=== PATIENT | female | born 1950 | race Caucasian/White ===

== ENCOUNTER 2024-12-09 14:50 | Emergency (ER) | payer MEDICARE, OTHER, SELFPAY ==
--- NOTE | ~2024-12-09 | CT_ITS ---
CT cervical spine wo con Ordering provider: Kalia Thorpe MD History: . trauma . Comparison: None. Technique: CT of the cervical spine was performed without contrast. Sagittal and coronal reformatted images were also obtained and reviewed. Automated exposure control and iterative reconstruction lui hnique were employed. The dose-length product was 148.90 mGy-cm. FINDINGS: VERTEBRAE: Minimal subluxation at the level of C4-C5 and C7-T1. Otherwise, No subluxation or acute fr acture. The occipital condyles are intact. DISC SPACES: Narrowing of the disc C4-C5, C5-C6 and C6-C7. Multilevel facet joint disease. Multilevel uncovertebral joint degenerative changes. Bilateral narrowing of the foramina at the level of C3-C4, C4-C5 and C6-C7. Narrowing of the right fo ramen at the level of C5-C6. PARASPINOUS SOFT TISSUES: Normal. Opacification the left upper lobe area which may indicate atelectasis versus pneumonia. IMPRESSION: No acute osseous abnormality cervical spine. Multilevel degenerative disc disease. Reviewed, dictated and finalized at location A.
--- NOTE | ~2024-12-09 | CT_ITS ---
CT brain wo con Ordering provider: Kalia Thorpe MD History: 74 years Female with . head injury . Comparison: None. Technique: CT of the head without contrast. Radiation reduction technique utilized.The dose-length product was 605.33 mGy-cm. FINDINGS: BRAIN PARENCHYMA AND CSF SPACES: Mild leukoaraiosis and diffuse cortical atrophy. Mild atheromatous d isease. No midline shift, mass effect or hemorrhage. The brain parenchyma and CSF spaces are otherwi se normal. VISUALIZED PARANASAL SINUSES: Right maxillary sinus disease. MASTOIDS: Well aerated. BONES: The bones appear intact. SOFT TISSUES: Visualized nasopharynx is normal. Superficial soft tissues are normal. IMPRESSION: No acute intracranial findings. Reviewed, dictated and finalized at location A.
[2024-12-09 14:55] VITALS: BP 141/84; PULSE 70; RESP 16; TEMP 37.1; O2SAT 100
--- OUTSIDE RECORDS SUMMARY | 2024-12-09 15:24 | XMS_ITS | Referral Summary ---
Author Organization [facility] Address [address] [place] [id number] Care Team Providers Care Project Consultant Name Role Phone Felipe Singh Primary Care Provider Allergies Active Allergy Reactions Criticality Noted Date Comments Cefuroxime Angioedema High 06/23/2022 Lisinopril Angioedema High 06/23/2022 Medications multivit-min/fe rrous fumarate (MULTI VITAMIN ORAL) Take by mouth daily Active atorvastatin (LIPITOR) 20 mg tablet Take 1 tablet (20 mg total) by mouth daily 90 tablet 3 08/18/2022 Active busPIRone (BUSPAR) 5 mg tablet Take 1 tablet (5 mg total) by mouth 2 (two) times a day Active thiamine (VITAMIN B-1) 100 mg tablet Take 1 tablet (100 mg total) by mouth daily 03/12/2023 Active donepeziL (ARICEPT) 10 mg tablet Take 1 tablet (10 mg total) by mouth nightly 30 tablet 11 03/16/2023 Active sertraline (ZOLOFT) 100 mg tablet Take 1 tablet (100 mg total) by mouth daily 05/10/2023 Active memantine (NAMENDA) 5 mg tabletIndicatio ns:Moderate to Severe Alzheimer's Type Dementia Take 2 tablets (10 mg total) by mouth 2 (two) times a day 120 tablet 06/09/2023 Active Active Problems Problem Noted Date Diagnosed Date Routine general medical exam ination at a health care facility 06/22/2022 Assessment & Plan (06/30/2022 2:50 PM DEFENSE TRAVEL ADMINISTRATOR): HEALTHCARE MAINTENANCE updated Mixed hyperlipidemia 03/11/2020 Situational mixed anxiety and depressive disorde r 03/11/2020 Esophageal diverticulum 10/14/2018 Achalasia of esophagus 10/14/2018 Chronic blood loss anemia 10/13/2018 Spondylolisthesis, grade 2 01/21/2016 Spinal stenosis of lumbar re gion with neurogenic claudication 01/21/2016 Osteopenia 05/25/2011 Raynaud's disease 05/25/2011 Hypertension Assessment & Plan (07/15/2022 3:26 PM DEFENSE TRAVEL ADMINISTRATOR): Images from the original note were not included. This is a stable chronic condition. Monitor blood pressure, call if out of parameters as we discussed. Low sodium and caffeine diet. baby asa as discussed if applicable. Diet, exercise and weight reduction. Labs as ordered. F/U routine Assessment & Plan (06/30/2022 2:50 PM DEFENSE TRAVEL ADMINISTRATOR): Images from the original note were not included. This is a stable chronic condition. Monitor blood pressure, call if out of parameters as we discussed. Low sodium and caffeine diet. baby asa as discussed if applicable. Diet, exercise and weight reduction. Labs as ordered. F/U routine Alzheimer's dementia Assessment & Plan (07/15/2022 3:36 PM DEFENSE TRAVEL ADMINISTRATOR): Mild, increasing aricept, will follow, she is seen Psychiatry and Neurology down the road Assessment & Plan (06/30/2022 2:52 PM DEFENSE TRAVEL ADMINISTRATOR): Does not appers to be doing well per family, will do aditional work up Mild episode of recurrent major depressive disor franck Assessment & Plan (07/15/2022 3:26 PM DEFENSE TRAVEL ADMINISTRATOR): Well controlled, CPM Assessment & Plan (06/30/2022 2:49 PM DEFENSE TRAVEL ADMINISTRATOR): Well controlled with no SI/HI, CPM, f/u routine Immunizations Immunization Administration Dates Next Due Influenza, Trivalent, High D ose, Split, Preservative Free, Intramuscular 06/28/2017,06/14/2015 Influenza, Trivalent, IM (MDV) 05/11/2014,2011 Moderna SARS-CoV-2 Monovalent Vaccination (12+ Y RS) 09/25/2020,08/23/2020 Pneumococcal Conjugate PCV 13 06/14/2015 Pneumococcal Polysaccharide PPV23 01/27/2017 Tdap 11/17/2012,10/24/2012 ZOSTER LIVE 09/02/2012 Social History Tobacco Use Types Packs/Day Years Used Date Smoking Tobacco: Former Cigarettes AUDIT-C Answer Date Recorded Q1: How often do you have a drink containing alc ohol? Monthly or less 09/10/2022 Q2: How many drinks containi ng alcohol do you have on a typical day when you are drinking? 1 or 2 09/10/2022 Q3: How often do you have si x or more drinks on one occasion? Never 09/10/2022 PHQ-2 Answer Date Recorded PHQ-2 Total Score (If total score is 3 or more points, staff should administer the PHQ-9) 6 06/23/2022 Personal Safety Answer Date Recorded Getting School Help Needed Not on file 08/08 Comments No Sex and Gender Information Value Date Recorded Sex Assigned at Not on file Legal Sex Female 9:06 AM DEFENSE TRAVEL ADMINISTRATOR Gender Identity Female 06/23/2022 6:41 PM DEFENSE TRAVEL ADMINISTRATOR Sexual Orientation Straight 06/23/2022 6: 41 PM DEFENSE TRAVEL ADMINISTRATOR Last Filed Vital Signs Vital Sign Reading Time Taken Comments Blood Pressure 129/74 06/09/2023 2:40 PM DEFENSE TRAVEL ADMINISTRATOR Pulse 79 06/09/2023 2:40 PM DEFENSE TRAVEL ADMINISTRATOR Temperature 36.4 C (97.5 F) 08/18/2022 10:55 AM DEFENSE TRAVEL ADMINISTRATOR Respiratory Rate 18 08/18/2022 10:55 AM DEFENSE TRAVEL ADMINISTRATOR Oxygen Saturation 99% 08/18/2022 10:55 AM DEFENSE TRAVEL ADMINISTRATOR Inhaled Oxygen Concentration - - Weight 61.7 kg (136 lb) 06/09/2023 2:40 PM DEFENSE TRAVEL ADMINISTRATOR Height 162.6 cm (5' 4 ) 06/09/2023 2:40 PM DEFENSE TRAVEL ADMINISTRATOR Body Mass Index 23.34 06/09/2023 2:40 PM DEFENSE TRAVEL ADMINISTRATOR Plan of Treatment Not on file Procedures Procedure Name Priority Date/Time Associated Diagnosis Comments SCREENING MAMMOGRAM BILATERAL W ADAMA Schedule Routine, Read Routine (OP Routine) 12/25/2022 4:06 PM CDT Encounter for screening mammogram for malignant neoplasm of breast DEXA AXIAL SKELETON BONE DENSITY 1 OR MORE SITES Schedule Routine, Read Routine (OP Routine) 12/25/2022 3:59 PM CDT Menopause HEPATITIS C ANTIBODY Routine 06/23/2022 2:33 PM DEFENSE TRAVEL ADMINISTRATOR Need for hepatitis C screening test from Last 3 Months or Most Recently Relevant to Health Maintenance Results * (ABNORMAL) Screening Mammogram Bilateral W [place] (12/25/2022 4:06 PM CDT) Anatomical Region Laterality Modality Breast Bilateral Mammography Impressions 12/25/2022 4:22 PM CDT BI-RADS ATLAS category (overall): 0 - Incomplete: Needs Additional Imaging Evaluation 1. Indeterminate left breast findings. Further evaluation with diagnostic left mammography and possible diagnostic left breast ultrasound is recommended. 2. No mammographic evidence of malignancy in the right breast. Routine screening mammography of the right breast is recommended in 1 year. The patient has been or will be contacted. Narrative 12/25/2022 4:22 PM CDT Screening Mammogram Bilateral W Adama: 12/25/22 The study was acquired using full field digital technology and interpreted from soft copy. 2D digital mammographic views, as well as 3D digital tomosynthesis were performed in the CC and MLO projections. CLINICAL: Encounter for screening mammogram for malignant neoplasm of breast. No relevant medical history has been documented for this patient. History of breast cancer in Sister, Mother's Sister. COMPARISON: New Baseline Screening Mammography. No prior mammography is available for comparison. BREAST TISSUE: The breasts are heterogeneously dense, which may obscure small masses. FINDINGS: Suboptimal examination secondary to difficulty with patient positioning related to the patient's physical condition. There are vascular calcifications and other benign calcifications in both breasts. There is a biopsy marking clip in the lateral right breast, middle depth. There is a left breast MLO view asymmetry superior to the nipple, posterior depth. There is a left breast CC view asymmetry central or slightly lateral to the nipple, posterior depth. There are no suspicious findings in the right breast on mammogram. [facility] IMG MAMMO PROCEDURES Final Resu lt * Dexa Axial Skeleton Bone Density 1 or 2 Site (12/25/2022 3:59 PM CDT) Anatomical Region Laterality Modality Body N/A Mammography 12/26/2022 11:1 2 PM CDT Narrative 12/26/2022 11:21 PM CDT EXAM DESCRIPTION: DEXA AXIAL SKELETON BONE DENSITY 1 OR MORE SITES REASON FOR STUDY: 72 y/o year old F with given history of screening. Postmenopausal Metal Cut Off Saw Tender/Model: Global Axcess A (S/N [id number]) CLINICAL INFORMATION: Current height: 61.5 inches Maximum height: 63 inches Weight: 145 pounds Risk factors: Postmenopausal, adult fracture COMPARISON: None available FINDINGS: Right forearm: 33% radius BMD is 0.605 g/cm2 T-score is -1.5 LEFT HIP: Total BMD is 0.783 g/cm2 T-score is -1.3 Femoral neck BMD is 0.674 g/cm2 T-score is -1.6 FRAX: 10 year risk for a major osteoporotic fracture is 17 %, 10 year risk for a hip fracture is 2.8 % IMPRESSION: Low Bone Mass. REFERENCE: Bone mineral density: Normal (T-score above or = -1.0) Low bone mass (T-score between -1.0 and -2.5) replaces the previously used term osteopenia Osteoporosis (T-score = or below -2.5) Medical evaluation for secondary causes of low bone mineral density may be appropriate. FRAX is a World Health Organization validated fracture risk assessment tool that calculates a person's 10 year probability of a major osteoporosis related fracture and hip fracture. According to the National Osteoporosis Foundation guidelines, postmenopausal women and men age 50 or older with low bone mass and a 10 year probability of a major osteoporosis related fracture = or greater than 20% or a 10 year probability of a hip fracture = or greater than 3% should be considered for treatment. For further information, including treatment recommendations, please refer to the 2019 ISCD Official Positions (http://www.iscd.org) and the NOF's Clinician's Guide to Prevention and Treatment of Osteoporosis (http://www.nof.org/professionals/clinical-guidelines) THIS IS AN ELECTRONICALLY VERIFIED FINAL REPORT 12/26/2022 11:21 PM - Electronically signed by Amrit Godinez M.D. MF: [email or web address] Report ID: [id number] Reading Location: [id number] Procedure Note Amrit Godinez MD - 12/26/2022 EXAM DESCRIPTION: DEXA AXIAL SKELETON BONE DENSITY 1 OR MORE SITES REASON FOR STUDY: 72 y/o year old F with given history of screening. Postmenopausal Metal Cut Off Saw Tender/Model: Global Axcess A (S/N [id number]) CLINICAL INFORMATION: Current height: 61.5 inches Maximum height: 63 inches Weight: 145 pounds Risk factors: Postmenopausal, adult fracture COMPARISON: None available FINDINGS: Right forearm: 33% radius BMD is 0.605 g/cm2 T-score is -1.5 LEFT HIP: Total BMD is 0.783 g/cm2 T-score is -1.3 Femoral neck BMD is 0.674 g/cm2 T-score is -1.6 FRAX: 10 year risk for a major osteoporotic fracture is 17 %, 10 year risk for ahip fracture is 2.8 % IMPRESSION: Low Bone Mass. REFERENCE: Bone mineral density: Normal (T-score above or = -1.0) Low bone mass (T-score between -1.0 and -2.5) replaces thepreviously used term osteopenia Osteoporosis (T-score = or below -2.5) Medical evaluation for secondary causes of low bone mineral density may be appropriate. FRAX is a World Health Organization validated fracture risk assessmenttool that calculates a person's 10 year probability of a major osteoporosisrelated fracture and hip fracture. According to the National OsteoporosisFoundation guidelines, postmenopausal women and men age 50 or older with low bonemass and a 10 year probability of a major osteoporosis related fracture = or greater than 20% or a 10 year probability of a hip fracture = or greaterthan 3% should be considered for treatment. For further information, including treatment recommendations, please referto the 2019 ISCD Official Positions (http://www.iscd.org) and the NOF's Clinician's Guide to Prevention and Treatment of Osteoporosis (http://www.nof.org/professionals/clinical-guidelines) THIS IS AN ELECTRONICALLY VERIFIED FINAL REPORT 12/26/2022 11:21 PM - Electronically signed by Amrit Godinez M.D. MF: [email or web address] Report ID: [id number] Reading Location: [place] [id number] Fel[facility] IMG DXA PROCEDURES Final Result * Hepatitis C antibody (06/23/2022 2:33 PM DEFENSE TRAVEL ADMINISTRATOR) Hep C Ab Nonreactive Nonreactive CARLOS ALBERTO CAMPBELL Comment: Interpretive Data Nonreactive: Antibodies to HCV not detected. Does NOT exclude the possibility of recent exposure to HCV. Equivocal: Equivocal for HCV antibodies. Supplemental molecular testing will be automatically performed to determine infection status in accordance with current CDC screening recommendations. Reactive: Positive for HCV antibodies. This may represent current or past HCV infection. Supplemental molecular testing will be automatically performed to determine current infection status in accordance with current CDC screening recommendations. Interpretive data was last revised on 2019. Blood 06/23/2022 2:33 PM DEFENSE TRAVEL ADMINISTRATOR 06/23/2022 5:01 PM DEFENSE TRAVEL ADMINISTRATOR [facility] MICROBIOLOGY - [facility]AL [facility] Final Result CARLOS ALBERTO [address] [facility] Department [place] [address] from Last 3 Months or Most Recently Relevant to Health Maintenance Insurance HUMANA MEDICARE HMO HUMANA MEDICARE HMO HUMANA MEDICARE HMO Care Teams Project Consultant Relationship Specialty Start Date End Date Felipe Singh PA PCP - General Family Medicine 06/23/22
--- OUTSIDE RECORDS SUMMARY | 2024-12-09 15:24 | XMS_ITS | Clinical Summary ---
Author Organization [facility] Address [address] [place] [id number] Care Team Providers Care Hospital Manager Name Role Phone Felipe Singh Primary Care Provider [phone] Allergies Active Allergy Reactions Criticality Noted Date [...] 06/22/2022 Assessment & Plan (06/30/2022 2:50 PM VEHICLE MECHANIC): HEALTHCARE MAINTENANCE updated Mixed hyperlipidemia 03/11/2020 Situational mixed anxiety and depressive disorde r 03/11/2020 Esophageal diverticulum 10/14/2018 Achalasia of esophagus 10/14/2018 Chronic blood loss anemia 10/13/2018 Spondylolisthesis, grade 2 01/21/2016 Spinal stenosis of lumbar re gion with neurogenic claudication 01/21/2016 Osteopenia 05/25/2011 Raynaud's disease 05/25/2011 Hypertension Assessment & Plan (07/15/2022 3:26 PM VEHICLE MECHANIC): Images from the original note were not included. This is a stable chronic condition. Monitor blood pressure, call if out of parameters as we discussed. Low sodium and caffeine diet. baby asa as discussed if applicable. Diet, exercise and weight reduction. Labs as ordered. F/U routine Assessment & Plan (06/30/2022 2:50 PM VEHICLE MECHANIC): Images from the original note were not included. This is a stable chronic condition. Monitor blood pressure, call if out of parameters as we discussed. Low sodium and caffeine diet. baby asa as discussed if applicable. Diet, exercise and weight reduction. Labs as ordered. F/U routine Alzheimer's dementia Assessment & Plan (07/15/2022 3:36 PM VEHICLE MECHANIC): Mild, increasing aricept, will follow, she is seen Psychiatry and Neurology down the road Assessment & Plan (06/30/2022 2:52 PM VEHICLE MECHANIC): Does not appers to be doing well per family, will do aditional work up Mild episode of recurrent major depressive disor franck Assessment & Plan (07/15/2022 3:26 PM VEHICLE MECHANIC): Well controlled, CPM Assessment & Plan (06/30/2022 2:49 PM VEHICLE MECHANIC): Well controlled with no SI/HI, CPM, f/u routine Immunizations Immunization Administration Dates Next Due Influenza, Trivalent, High D ose, Split, Preservative Free, Intramuscular 06/28/2017,06/14/2015 Influenza, Trivalent, IM (MDV) 05/11/2014,2011 Moderna SARS-CoV-2 Monovalent Vaccination (12+ Y RS) 09/25/2020,08/23/2020 Pneumococcal Conjugate PCV 13 06/14/2015 Pneumococcal Polysaccharide PPV23 01/27/2017 Tdap 11/17/2012,10/24/2012 ZOSTER LIVE 09/02/2012 Surgical History Surgery Date Site/Laterality Comments SECTION HYSTERECTOMY ARM SURGERY Left HERNIA REPAIR SPINE SURGERY Medical History Medical History Date Comments Hypertension Family History Medical History Relation Name Comments Prostate cancer Father Stroke Father Alzheimer's disease Mother Stroke Mother Breast cancer Mother's Sister Breast cancer Sister Relation Name Status Comments Father Mother Mother's Sister Sister Social History Tobacco Use Types Packs/Day Years [...] on file Legal Sex Female 9:06 AM VEHICLE MECHANIC Gender Identity Female 06/23/2022 6:41 PM VEHICLE MECHANIC Sexual Orientation Straight 06/23/2022 6: 41 PM VEHICLE MECHANIC Obstetrics History Para Term AB IAB SAB Ectopic Multiple Livin g Live Births 2 Date Outcome GA Total Labor Labor/2nd/3rd Weight Sex Type Anes PTL Rafaela A1 A5 Name Clin Last Filed Vital Signs Vital Sign Reading Time Taken Comments Blood Pressure 129/74 06/09/2023 2:40 PM VEHICLE MECHANIC Pulse 79 06/09/2023 2:40 PM VEHICLE MECHANIC Temperature 36.4 C (97.5 F) 08/18/2022 10:55 AM VEHICLE MECHANIC Respiratory Rate 18 08/18/2022 10:55 AM VEHICLE MECHANIC Oxygen Saturation 99% 08/18/2022 10:55 AM VEHICLE MECHANIC Inhaled Oxygen Concentration - - Weight 61.7 kg (136 lb) 06/09/2023 2:40 PM VEHICLE MECHANIC Height 162.6 cm (5' 4 ) 06/09/2023 2:40 PM VEHICLE MECHANIC Body Mass Index 23.34 06/09/2023 2:40 PM VEHICLE MECHANIC Plan of Treatment Health Maintenance Due Date Last Done Comments Colon Cancer Screening-Colonoscopy 1950 Hepatitis B Screening 12/03/1967 Zoster Vaccine (2 of 3) 10/28/2012 09/02/2012 DTaP/Tdap/Td Vaccine (3 - Td or Tdap) 11/17/2022 11/17/2012, 10/24/2012 Depression Screening 06/23/2023 06/23/2022, 06/23/20 22 Fall Risk Assessment 06/23/2023 06/23/2022 Well Visit 65+ 06/23/2023 06/23/2022 Breast Cancer Screening-Mammogram 12/26/2023 023 Covid-19 Vaccine (3 - 2023-2 5 season) 2024 09/25/2020, 08/23/2020 Influenza Vaccine (#1) 2024 7, 06/14/2015, 05/11/2014, Additional history exists Osteoporosis Screening-Bone Density Scan 12/25/2024 12/25/2022 Pneumococcal vaccine 65+ Completed 01/27/2017, 05/27 Hepatitis C Screening Completed 06/23/2022 Procedures Procedure Name Priority Date/Time Associated Diagnosis Comments SCREENING MAMMOGRAM BILATERAL W [place]AMA Schedule Routine, Read Routine (OP Routine) 12/25/2022 4:06 PM CDT Encounter for screening mammogram for malignant neoplasm of breast DEXA AXIAL SKELETON BONE DENSITY 1 OR MORE SITES Schedule Routine, Read Routine (OP Routine) 12/25/2022 3:59 PM CDT Menopause HEPATITIS C ANTIBODY Routine 06/23/2022 2:33 PM VEHICLE MECHANIC Need for hepatitis C screening test from [...] F with given history of screening. Postmenopausal Forensic Identification Specialist/Model: Hologic Horizon A (S/N [id number]) CLINICAL INFORMATION: Current height: 61.5 inches Maximum [...] Amrit Godinez M.D. MF: JIGNA Report ID: [id number] Reading Location: [id number] Procedure Note Amrit Godinez MD - 12/26/2022 EXAM DESCRIPTION: DEXA AXIAL SKELETON BONE DENSITY 1 OR MORE SITES REASON FOR STUDY: 72 y/o year old F with given history of screening. Postmenopausal Forensic Identification Specialist/Model: Hologic Horizon A (S/N [id number]) CLINICAL INFORMATION: Current height: 61.5 inches Maximum [...] Amrit Godinez M.D. MF: JIGNA Report ID: [id number] Reading Location: [id number] Fel[facility] IMG DXA PROCEDURES Final Result * Hepatitis C antibody (06/23/2022 2:33 PM VEHICLE MECHANIC) Hep C Ab Nonreactive Nonreactive CARLOS ALBERTO [...] revised on 2019. Blood 06/23/2022 2:33 PM VEHICLE MECHANIC 06/23/2022 5:01 PM VEHICLE MECHANIC [facility] MICROBIOLOGY - GENERAL SHARI VALENTIN Final Result Performing Organization Address City/State/[facility] Co de Phone Number CARLOS ALBERTO [address] [facility] Department [place] [address] from Last 3 Months or Most Recently Relevant to Health Maintenance Insurance HUMANA MEDICARE HMO HUMANA MEDICARE HMO HUMANA MEDICARE HMO Care Teams Hospital Manager Relationship Specialty Start Date End Date Felipe Singh PA PCP - General Family Medicine 06/23/22
--- NOTE | 2024-12-09 15:35 | ED.FALL ---
HPI - Fall General Chief Complaint: Fall Stated Complaint: FALL Time Seen by Provider: 12/09/24 14:54 History of Present Illness HPI Narrative: Patient is a 74-year-old female with history of dementia who presents ER after a fall. Patient's daughter is at bedside. There are cameras in the patient's room and they witnessed a patient age to help stand the patient who then fell forward striking her face on the ground. Unfortunately the skilled nursing reported that the patient only fell on her bottom and they think she just bit her lip when apparently there is video evidence to the contrary. Patient cannot provide any history. Related Data Allergies Allergy/AdvReac Type Severity Reaction Status Date / Time Cephalosporins Allergy Unknown Unknown Verified 12/09/24 15:09 lisinopril Allergy Unknown Unknown Verified 12/09/24 15:09 Review of Systems Review of Systems: ROS unobtainable: Yes unobtainable due to mental status PMFSH Past Medical History Medical History (Updated 12/09/24 @ 17:37 by Kalia Thorpe MD) Hyperlipidemia Anxiety Dementia Exam Narrative: GENERAL: Well-appearing, well-nourished, and in no acute distress. HEAD: Normocephalic, atraumatic. ENT: Mucous membranes moist. 1 cm laceration left upper lip that is through and through a swelling of the upper lip. CHEST: Clear to auscultation. No respiratory distress. HEART: Regular rate and rhythm. Normal peripheral pulses. ABDOMEN: Soft, nontender, nondistended. EXTREMITIES: Normal range of motion. No edema. NEURO: Awake alert, at neurologic baseline. PSYCH: Normal mood and affect. Course Course Emergency Course: No fractures on imaging. Wound repaired. Discharge. Vital Signs Vital signs: Vital Signs Temperature 98.7 F 12/09/24 14:55 Pulse Rate 70 12/09/24 14:55 Respiratory Rate 16 12/09/24 14:55 Blood Pressure 141/84 H 12/09/24 14:55 Pulse Oximetry 100 12/09/24 14:55 Oxygen Delivery Room Air 12/09/24 14:55 Temperature 98.7 F 12/09/24 14:55 Pulse Rate 70 12/09/24 14:55 Respiratory Rate 16 12/09/24 14:55 Blood Pressure 141/84 H 12/09/24 14:55 Pulse Oximetry 100 12/09/24 14:55 Oxygen Delivery Room Air 12/09/24 14:55 Procedures Laceration Laceration 1: Date: 12/09/24 Time: 17:15 Size (cm): 1 Description: linear Depth: simple, single layer Local Anesthetic: lidocaine 1% Amount of anesthesia used (mL): 2 Pre-repair: wound explored and irrigated extensively ====== Skin Level ====== Skin layer closed with: other (fast absorbing gut) Size (cm): 5-0 Number of sutures: 2 Technique: simple, interrupted ====== Subcutaneous Layer ====== ====== Muscle Layer ====== ====== Tendon Layer ====== MDM - Fall Imaging Data Radiologist's impression: ITS Impressions Head CT 12/09/24 16:30 IMPRESSION: No acute intracranial findings. Cervical Spine CT 12/09/24 17:06 IMPRESSION: No acute osseous abnormality cervical spine. Multilevel degenerative disc disease. Discharge Plan Discharge Clinical Impression: Laceration of lip Patient Disposition: Home Condition: Stable Instructions: Laceration (ED) Additional Instructions: Your sutures will absorb over the next 2 days. Return the ER if you have pus draining from near the lip, you cannot breathe, cannot swallow, have additional concerns. Patient Language: [place] Prescriptions: New amoxicillin-pot clavulanate 875-125 mg tablet 1 tablet PO Q12H Qty: 10 0RF amoxicillin-pot clavulanate 875-125 mg tablet 1 tablet PO Q12H Qty: 10 0RF Follow-up/Referrals: PHYSICIAN,LIFE SCIENCES INSTRUCTOR [Primary Care Provider] - 1 Week
[2024-12-09 18:15] VITALS: BP 142/76; PULSE 70; RESP 16; O2SAT 98
== END 2024-12-09 19:35 ==
PROVIDERS: Emergency Provider Emergency Medicine
DX: S01.511A Laceration without foreign body of lip, initial encounter (principal); F03.90 Unspecified dementia, unspecified severity, without behavioral disturbance, psychotic disturbance, mood disturbance, and anxiety; E78.5 Hyperlipidemia, unspecified; M50.31 Other cervical disc degeneration, high cervical region; W05.0XXA Fall from non-moving wheelchair, initial encounter
CPT/HCPCS: 12011; 70450; 72125; 99284

== ENCOUNTER 2025-01-02 16:58 | Emergency (ER) | payer MEDICARE, SELFPAY ==
[2025-01-02] VITALS (14 sets, daily range): BP systolic 134–185; BP diastolic 79–117; PULSE 64–83; RESP 12–18; TEMP 36.6; O2SAT 94–100
--- NOTE | ~2025-01-02 | CT_ITS ---
CT brain wo con Ordering provider: Tanvi Slade APRN History: 74 years Female with . head injury s/p fall . Comparison: None. Technique: CT of the head without contrast. Radiation reduction technique utilized.The dose-length product was 605.53 mGy-cm. FINDINGS: BRAIN PARENCHYMA AND CSF SPACES: Mild leukoaraiosis and diffuse cortical atrophy. Mild atheromatous d isease. No midline shift, mass effect or hemorrhage. The brain parenchyma and CSF spaces are otherwi se normal. VISUALIZED PARANASAL SINUSES: Right maxillary sinus disease. MASTOIDS: Well aerated. BONES: The bones appear intact. SOFT TISSUES: Visualized nasopharynx is normal. Superficial soft tissues are normal. IMPRESSION: No acute intracranial findings. Reviewed, dictated and finalized at location A.
--- NOTE | ~2025-01-02 | CT_ITS ---
CT facial & cervical spine wo Ordering provider: Tanvi Slade APRN History: . fall prior to arrival . Comparison: December 09, 2024 Technique: Thin slice axial CT of the facial bones was performed without contrast. Coronal and sagit chris reformatted images were also obtained. . Automated exposure control and iterative reconstruction technique were employed. The dose-length product was 162.97 mGy-cm. FINDINGS: PARANASAL SINUSES: Bilateral maxillary sinus disease. Otherwise, Well aerated. Mild left nasal septal deviation. A tooth is protruding in the left maxillary sinus. BONES: No facial fracture including no nasal bone fracture. ORBITS AND SUPERFICIAL SOFT TISSUES: The optic globes and orbits are normal. The superficial soft tis sues are normal. VISUALIZED MASTOIDS: Well aerated. LIMITED VISUALIZED BRAIN PARENCHYMA: Normal. IMPRESSION: No facial fracture. CT facial & cervical spine wo Ordering provider: Tanvi Slade APRN History: . fall prior to arrival . Comparison: None. Technique: CT of the cervical spine was performed without contrast. Sagittal and coronal reformatted images were also obtained and reviewed. Automated exposure control and iterative reconstruction lui hnique were employed. The dose-length product was 162.97 mGy-cm. FINDINGS: VERTEBRAE: Minimal anterolisthesis seen at the level of C4-C5 and C7-T1. No subluxation or acute frac ture. The occipital condyles are intact. The distance between the spinous process of C1 and C2 is sl ightly larger than normal. Ligamentous injury is possible. MRI evaluation advised. DISC SPACES: Narrowing of the disc C4-C5, C5-C6 and C6-C7. Multilevel facet joint disease. Multilevel uncovertebral joint osteoarthritic changes. Multilevel intervertebral foraminal narrowing. PARASPINOUS SOFT TISSUES: Normal. IMPRESSION: No definite acute osseous abnormality cervical spine. Slightly enlarged distance between the spinous process of C1 and C2 which may indicate ligamentous in jury. Clinical correlation and if clinically warranted MRI is advised. Multilevel degenerative disc disease. Reviewed, dictated and finalized at location A. IMPRESSION: No facial fracture. CT facial & cervical spine wo Ordering provider: Tanvi Slade APRN History: . fall prior to arrival . Comparison: None. Technique: CT of the cervical spine was performed without contrast. Sagittal a nd coronal reformatted images were also obtained and reviewed. Automated expos ure control and iterative reconstruction technique were employed. The dose-rebecca th product was 162.97 mGy-cm. FINDINGS: VERTEBRAE: Minimal anterolisthesis seen at the level of C4-C5 and C7-T1. No sub luxation or acute fracture. The occipital condyles are intact. The distance be tween the spinous process of C1 and C2 is slightly larger than normal. Ligament ous injury is possible. MRI evaluation advised. DISC SPACES: Narrowing of the disc C4-C5, C5-C6 and C6-C7. Multilevel facet ramsey nt disease. Multilevel uncovertebral joint osteoarthritic changes. Multilevel i ntervertebral foraminal narrowing. PARASPINOUS SOFT TISSUES: Normal. IMPRESSION: No definite acute osseous abnormality cervical spine. Slightly enlarged distance between the spinous process of C1 and C2 which may i ndicate ligamentous injury. Clinical correlation and if clinically warranted MR I is advised. Multilevel degenerative disc disease.
--- NOTE | 2025-01-02 17:33 | ED.FALL ---
HPI - Fall General Chief Complaint: Fall Stated Complaint: fall Time Seen by Provider: 01/02/25 16:59 History of Present Illness HPI Narrative: Patient is a 74-year-old female who presents to the ER after sustaining a fall at the [facility] lives. According to EMS she tried to stand up and transfer on her own but had an unwitnessed fall. She presents to the ER at her neurological baseline. Patient is able to answer yes or no questions, but is otherwise unable to communicate. According to her chart patient has a history of hyperlipidemia, dementia, and anxiety. Upon assessment patient denies pain to her chest, pain to her back, and is able to follow directions (moving lower extremities as directed). Related Data Allergies Allergy/AdvReac Type Severity Reaction Status Date / Time Cephalosporins Allergy Unknown Unknown Verified 12/09/24 15:09 lisinopril Allergy Unknown Unknown Verified 12/09/24 15:09 Review of Systems Review of Systems: All systems reviewed & are unremarkable except as noted in HPI and below PMFSH Past Medical History Medical History Hyperlipidemia Anxiety Dementia Exam Narrative: GENERAL: Well appearing, well-nourished, non-toxic, in no acute distress. HEAD: Normocephalic, L eyebrow hematoma-no visible bleeding NECK: Supple. No adenopathy, no masses. L neck (near collarbone) abrasion RESPIRATORY: Airway patent, respirations nonlabored. Clear to auscultation bilaterally, no rales, rhonchi, wheezing. CARDIOVASCULAR: Regular rate and rhythm without murmurs, rubs, or gallops. Peripheral pulses 2+ and equal bilaterally. ABDOMINAL: Soft, nontender, nondistended, no hepatosplenomegaly. Normoactive BS. MUSCULOSKELETAL: Moves all extremities. Strength/ROM intact without gross deformities. SKIN: Warm, dry, normal color. No rashes. NEURO: A&O X3. Speech clear. Cranial nerves II-XII intact. No ataxic movements. PSYCHIATRIC: Appropriate mood and affect. Normal interaction. Course Vital Signs Vital signs: Vital Signs Temperature 36.6 C 01/02/25 16:52 Pulse Rate 83 01/02/25 16:52 Respiratory Rate 18 01/02/25 16:52 Blood Pressure 185/104 H 01/02/25 16:52 Pulse Oximetry 97 01/02/25 16:52 Oxygen Delivery Room Air 01/02/25 16:52 Temperature 36.6 C 01/02/25 16:52 Pulse Rate 66 01/02/25 18:16 Respiratory Rate 14 01/02/25 18:16 Blood Pressure 137/87 01/02/25 18:16 Pulse Oximetry 100 01/02/25 18:16 Oxygen Delivery Room Air 01/02/25 16:52 MDM - Fall MDM Narrative Medical decision making narrative: Patient is a 74-year-old female who presents to the ER after sustaining a fall at the [facility] she lives. According to EMS she tried to stand up and transfer on her own but had an unwitnessed fall. She presents to the ER at her neurological baseline. Patient is able to answer yes or no questions, but is otherwise unable to communicate. According to her chart patient has a history of hyperlipidemia, dementia, and anxiety. Upon assessment patient denies pain to her chest, pain to her back, and is able to follow directions (moving lower extremities as directed. Labs Ordered: None necessary Imaging Ordered: CT brain, CT facial and cervical spine Medications Ordered: None necessary Results: Pt's CT brain scan indicates BRAIN PARENCHYMA AND CSF SPACES: Mild leukoaraiosis and diffuse cortical atrophy. Mild atheromatous disease. No midline shift, mass effect or hemorrhage. The brain parenchyma and CSF spaces are otherwise normal. VISUALIZED PARANASAL SINUSES: Right maxillary sinus disease. MASTOIDS: Well aerated. BONES: The bones appear intact. SOFT TISSUES: Visualized nasopharynx is normal. Superficial soft tissues are normal. Her CT facial/cervical scan indicates PARANASAL SINUSES: Bilateral maxillary sinus disease. Otherwise, Well aerated. Mild left nasal septal deviation. A tooth is protruding in the left maxillary sinus. BONES: No facial fracture including no nasal bone fracture. ORBITS AND SUPERFICIAL SOFT TISSUES: The optic globes and orbits are normal. The superficial soft tissues are normal. VISUALIZED MASTOIDS: Well aerated. LIMITED VISUALIZED BRAIN PARENCHYMA: Normal. IMPRESSION: No facial fracture. VERTEBRAE: Minimal anterolisthesis seen at the level of C4-C5 and C7-T1. No subluxation or acute fracture. The occipital condyles are intact. The distance between the spinous process of C1 and C2 is slightly larger than normal. Ligamentous injury is possible. MRI evaluation advised. DISC SPACES: Narrowing of the disc C4-C5, C5-C6 and C6-C7. Multilevel facet joint disease. Multilevel uncovertebral joint osteoarthritic changes. Multilevel intervertebral foraminal narrowing. PARASPINOUS SOFT TISSUES: Normal. IMPRESSION: No definite acute osseous abnormality cervical spine. Slightly enlarged distance between the spinous process of C1 and C2 which may indicate ligamentous injury. Clinical correlation and if clinically warranted MRI is advised. Multilevel degenerative disc disease. Diagnosis: Fall, concussion Patient Education/Shared MDM: Patient's CT scans indicate no acute abnormalities, although the radiologist did note a slightly enlarged space between C1 and C2. Pt continues to deny pain, nor react, with palpation to the cervical spine. Upon reexamination she is smiling and continues to answer yes/no questions. Patient should follow-up with her PCP as soon as possible. She will not be discharged home with any new prescriptions. Strict return precautions provided in discharge paperwork. Vital signs stable at time of discharge. All questions answered. Differential Diagnosis Differential diagnosis: Likely concussion with loss of consciousness, concussion without loss of consciousness and other (Subdural hemorrhage, cervical strain, vertebral fracture) Imaging Data Attestation: I personally reviewed and interpreted this imaging study as follows: Radiologist's impression: Impressions Head CT 01/02/25 18:26 IMPRESSION: No acute intracranial findings. Head/Cervical Spine/Facial Bones CT 01/02/25 19:07 IMPRESSION: No facial fracture. CT facial & cervical spine wo Ordering provider: Tanvi Slade APRN History: . fall prior to arrival . Comparison: None. Technique: CT of the cervical spine was performed without contrast. Sagittal and coronal reformatted images were also obtained and reviewed. Automated exposure control and iterative reconstruction technique were employed. The dose-length product was 162.97 mGy-cm. FINDINGS: VERTEBRAE: Minimal anterolisthesis seen at the level of C4-C5 and C7-T1. No subluxation or acute fracture. The occipital condyles are intact. The distance between the spinous process of C1 and C2 is slightly larger than normal. Ligamentous injury is possible. MRI evaluation advised. DISC SPACES: Narrowing of the disc C4-C5, C5-C6 and C6-C7. Multilevel facet joint disease. Multilevel uncovertebral joint osteoarthritic changes. Multilevel intervertebral foraminal narrowing. PARASPINOUS SOFT TISSUES: Normal. IMPRESSION: No definite acute osseous abnormality cervical spine. Slightly enlarged distance between the spinous process of C1 and C2 which may indicate ligamentous injury. Clinical correlation and if clinically warranted MRI is advised. Multilevel degenerative disc disease. Discharge Plan Discharge Clinical Impression: Fall, Concussion Patient Disposition: NH Care Home/Asst Living Condition: Stable Instructions: Antibiotic Form, Head Injury (ED) Additional Instructions: Please return to the ER with any worsening symptoms, including altered mental status, repeated vomiting, or signs of extreme pain. She should follow-up with primary care provider as soon as possible for further evaluation. Take all regularly scheduled medications as prescribed. Patient Language: Honduran Prescriptions: No Action amoxicillin-pot clavulanate 875-125 mg tablet 1 tablet PO Q12H Qty: 10 0RF amoxicillin-pot clavulanate 875-125 mg tablet 1 tablet PO Q12H Qty: 10 0RF Follow-up/Referrals: PHYSICIAN,[employer]IRCRA[employer] MECHANIC [Primary Care Provider] - Stand Alone Forms: Mcfp Discharge Time of Disposition: 20:12
--- OUTSIDE RECORDS SUMMARY | 2025-01-02 17:38 | XMS_ITS | Referral Summary ---
Author Organization [facility] at the Medical Office Building Address [address] [place] [id number] Care Team Providers Care Fretted String Instrument Repairer Name Role Phone Felipe Singh Primary Care Provider [phone] Allergies Active Allergy Reactions Criticality Noted Date [...] 06/22/2022 Assessment & Plan (06/30/2022 2:50 PM GYM TEACHER): HEALTHCARE MAINTENANCE updated Mixed hyperlipidemia 03/11/2020 Situational mixed anxiety and depressive disorde r 03/11/2020 Esophageal diverticulum 10/14/2018 Achalasia of esophagus 10/14/2018 Chronic blood loss anemia 10/13/2018 Spondylolisthesis, grade 2 01/21/2016 Spinal stenosis of lumbar re gion with neurogenic claudication 01/21/2016 Osteopenia 05/25/2011 Raynaud's disease 05/25/2011 Hypertension Assessment & Plan (07/15/2022 3:26 PM GYM TEACHER): Images from the original note were not included. This is a stable chronic condition. Monitor blood pressure, call if out of parameters as we discussed. Low sodium and caffeine diet. baby asa as discussed if applicable. Diet, exercise and weight reduction. Labs as ordered. F/U routine Assessment & Plan (06/30/2022 2:50 PM GYM TEACHER): Images from the original note were not included. This is a stable chronic condition. Monitor blood pressure, call if out of parameters as we discussed. Low sodium and caffeine diet. baby asa as discussed if applicable. Diet, exercise and weight reduction. Labs as ordered. F/U routine Alzheimer's dementia Assessment & Plan (07/15/2022 3:36 PM GYM TEACHER): Mild, increasing aricept, will follow, she is seen Psychiatry and Neurology down the road Assessment & Plan (06/30/2022 2:52 PM GYM TEACHER): Does not appers to be doing well per family, will do aditional work up Mild episode of recurrent major depressive disor franck Assessment & Plan (07/15/2022 3:26 PM GYM TEACHER): Well controlled, CPM Assessment & Plan (06/30/2022 2:49 PM GYM TEACHER): Well controlled with no SI/HI, CPM, f/u [...] on file Legal Sex Female 9:06 AM GYM TEACHER Gender Identity Female 06/23/2022 6:41 PM GYM TEACHER Sexual Orientation Straight 06/23/2022 6: 41 PM GYM TEACHER Last Filed Vital Signs Vital Sign Reading Time Taken Comments Blood Pressure 129/74 06/09/2023 2:40 PM GYM TEACHER Pulse 79 06/09/2023 2:40 PM GYM TEACHER Temperature 36.4 C (97.5 F) 08/18/2022 10:55 AM GYM TEACHER Respiratory Rate 18 08/18/2022 10:55 AM GYM TEACHER Oxygen Saturation 99% 08/18/2022 10:55 AM GYM TEACHER Inhaled Oxygen Concentration - - Weight 61.7 kg (136 lb) 06/09/2023 2:40 PM GYM TEACHER Height 162.6 cm (5' 4) 06/09/2023 2:40 PM GYM TEACHER Body Mass Index 23.34 06/09/2023 2:40 PM GYM TEACHER Plan of Treatment Not on file Procedures [...] HEPATITIS C ANTIBODY Routine 06/23/2022 2:33 PM GYM TEACHER Need for hepatitis C screening test from [...] F with given history of screening. 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 MF: JIGNA Report ID: [id number] Reading Location: [id number] Procedure Note Amrit Godinez MD - 12/26/2022 EXAM DESCRIPTION: DEXA AXIAL SKELETON BONE DENSITY 1 OR MORE SITES REASON FOR STUDY: 72 y/o year old F with given history of screening. Postmenopausal [employer]acer/Model: [employer] [facility] (S/N [id number]) CLINICAL INFORMATION: Current height: 61.5 inches Maximum [...] Amrit Godinez M.D. MF: JIGNA Report ID: [id number] Reading Location: [place] [id number] [facility] IMG DXA PROCEDURES Final Result * Hepatitis C antibody (06/23/2022 2:33 PM GYM TEACHER) Hep C Ab Nonreactive Nonreactive CARLOS ALBERTO [...] revised on 2019. Blood 06/23/2022 2:33 PM GYM TEACHER 06/23/2022 5:01 PM GYM TEACHER [facility] Final Result CARLOS ALBERTO [address] [facility] Department [place] [address] from Last 3 Months or Most Recently Relevant to Health Maintenance Insurance [employer] MEDICARE HMO HU[employer] MEDICARE HMO HU[employer] MEDICARE HMO Care Teams Fretted String Instrument Repairer Relationship Specialty Start Date End Date Fleipe Singh PA PCP - General Family Medicine 06/23/22
--- OUTSIDE RECORDS SUMMARY | 2025-01-02 17:38 | XMS_ITS | Data Portability ---
Author Organization [place] - [facility] - Raissa jeffries, [facility] Address [address] [place] [address] Assessment Encounter Date Assessment Date Assessment LastModified by Organization Details LastModified Time 04/22/2022 04/22/2022 I have reviewed the RPM candidate and the patient has agreed. The medication management approach I select for this patient is Start/Adjust/ Stop. [email or web address] Not available 04/22/2022 16:28:31 Plan of Treatment Reminders Order Date Submit Date Provider Last Modified By Organization Details Last Modified Time Details Appointments None recorded. Lab lipid panel, serum 2021 022 [facility], [address] [place], [place] [address], [address], 3 04:28:48 CBC 2021 022 [facility], [address] [place], [place] [address], [address], 3 04:28:48 CMP, serum or plasma 2021 022 [facility], [address] [place], [place] [address], [place], [address], 3 04:28:48 HbA1c (hemoglobin A1c), blood 2021 022 [facility], [address] [place], [place] [address], [address], 3 04:28:48 TSH, serum or plasma 2021 022 [facility], [address] [place] [address], [address], 3 04:28:49 T4, free, serum 2021 022 [facility] [place] [facility], [address] [place] [address], [address], 3 04:28:49 T3, total, serum 2021 022 [facility] [place] [facility], [address] [place] [address], [address], 3 04:28:49 vitamin D, 25-hydroxy, total, serum 2021 022 [facility], [address] [place] [address], [address], 3 04:28:49 vitamin B12, serum 2021 022 [facility], [address] [place] [address], [address], 3 04:28:50 Referral neuropsycho logist referral 2021 022 [facility] - Dr. Sarkis Perez MD, [address] [place], [address], 3 04:28:50 neurologist referral 2021 [facility] - Dr. Sarkis Perez MD, [address] [place], [address], 15:24:13 Procedures None recorded. Surgeries None recorded. Imaging None recorded. Medication Orders donepezil 5 mg tablet 2021 [facility], [address] [place], [address], 16:32:03 losartan 50 mg-hydrochl orothiazide 12.5 mg tablet 2021 [facility], [address], [place], [address], 15:12:16 Adult Low Dose Aspirin 81 mg tablet,vanessa yed release 2021 [facility], [address] [facility] [address], [place], [address], 15:12:16 Patient TargetsNo targets recorded. Patient Instructions Encounter Date Encounter Id Patient Instructions Last Modified By Organization Details Last Modified Time 04/22/2022 [id number] home monitoring* [email or web address] Not availabl e 05/05/2022 15:07:30 Reason for Referral Neurologist Referral for Dem entia with behavioral disturbance Referring Physician: Prakash Bacon [facility], Encounter Date: 03/11/2022 Neuropsychologist Referral f or Dementia Referring Physician: Prakash Bacon [facility], Encounter Date: 04/22/2022 Problems Name Problem SNOMED Code Status Onset Date Resolution Date Notes Provider Name and Address Organization Details Recorded Time Essential hypertension 50455278 Active 2021 DEWAYNE Juarez, [place] - [facility] 14:43:29 Hyperlipidemia 33374823 Active 2021 DEWAYNE Juarez null, [facility] 14:43:43 Major depressive disorder 745437152 Active 2021 DEWAYNE Juarez, [facility] 2 14:43:50 Problem Notes None recorded. Medical Equipment None Reported. Allergies Allergen ID Allergen Name Allergen Category Reaction Reaction Severity Criticality Documentation Date Start Date Code Code System Note Provider Name and Address Organization Details Recorded Time 000754 cefuroxim e Not available Not available Not available Not available 03/11/2022 2194 RxNorm DEWAYNE Juarez [facility] 2 14:42:11 706423 lisinopri l medicatio n Not available Not available Not available 03/11/2022 79958 RxNorm DEWAYNE Juarez [facility] 2 14:43:05 Medications Name Sig Start Date Stop Date Status Note LastModified by Organization Details LastModified Time donepezil 5 mg tablet Take 1 tablet every day by oral route. active Not Available Not Available No t Available atorvastatin 10 mg tablet 03/11 completed Not Available Not Available Not Available ciprofloxaci n 500 mg tablet TAKE 1 TABLET BY MOUTH TWICE DAILY 03/11 completed Not Available Not Available Not Available losartan 50 mg-hydrochlo rothiazide 12.5 mg tablet Take 1 tablet every day by oral route for 90 days. active Not Available Not Available No t Available fluoxetine 20 mg capsule Take 1 capsule every day by oral route for 60 days. 03/11 completed Not Available Not Available Not Available Adult Low Dose Aspirin 81 mg tablet,delay ed release Take 1 tablet every day by oral route. 2021 active Not Available Not Available Not Avai lable escitalopram 5 mg tablet 03/11 completed Not Available Not Available Not Available Vitals Date Recorded Body height Body mass index (BMI) Body weight Body temperature Heart rate Oxygen saturation Oxygen saturation in Arterial blood by Pulse oximetry Systolic blood pressure Diastolic blood pressure Provider Name and Address Organization Details Last Updated DateTime 2 160.02 cm 26.8 kg/m2 96872.2 5 g 97.2 [degF] 82 /min 97 % 97 % 122 mm[Hg] 80 mm[Hg] DEWAYNE Juarez [facility] 2 14:39:46 Date Recorded Body height Body mass index (BMI) Body weight Body temperature Heart rate Oxygen saturation Oxygen saturation in Arterial blood by Pulse oximetry Systolic blood pressure Diastolic blood pressure Provider Name and Address Organization Details Last Updated DateTime 160.02 cm 26.6 kg/m2 30661.5 6 g 97.8 [degF] 78 /min 99 % 99 % 140 mm[Hg] 80 mm[Hg] DEWAYNE Juarez [place] - [facility] - [place] 16:16:34 Social History Question Answer Notes LastModified by MoPub Details LastModified Time Tobacco Smoking Status Never Smoker Lyn AcevedolorenPANCHITOMonica null, [place] - [facility] - [place] 03/11/2022 14:45:06 Are You Blind Or Do You Have Difficulty Seeing? No Information not available 03/11/2022 What Is Your Level Of Caffeine Consumption? Occasional Information not available 03/11/2022 Are You Deaf Or Do You Have Serious Difficulty Hearing? No Information not available 03/11/2022 What Type Of Diet Are You Following? REGULAR Information not available 03/11/2022 What Was The Date Of Your Most Recent Tobacco Screening? 03/11/2022 Information not available 03/11/2022 What Is Your Relationship Status? Information not available 03/11/2022 Do You Use Your Seat Belt Or Car Seat Routinely? Yes Information not available 03/11/2022 Has Tobacco Cessation Counseling Been Provided? No Information not available 03/11/2022 Do You Have Difficulty Walking Or Climbing Stairs? No Information not available 03/11/2022 Sex: Female Functional Status Question Answer Note LastModified by Mo[employer] Details LastModified Time Do you use any illicit or recreational drugs? No Information not available 03/11/2022 Do you or have you ever used any other forms of tobacco or nicotine? No Information not available 03/11/2022 What is your level of alcohol consumption? Occasional Information not available 03/11/2022 Do you have difficulty doing errands alone? No Information not available 03/11/2022 Are you able to care for yourself? Yes Information n ot available 03/11/2022 Do you have difficulty dressing or bathing? No Information not available 03/11/2022 Mental Status Question Answer Note LastModified by Organization D etails LastModified Time Do you have difficulty concentrating, remembering or making decisions? No Information no t available 03/11/2022 Family History Relationship Description Onset Age of this Age Resolved Age Notes LastModified by Organization Details LastModified Time Father No current problems or disability Not available 03/11 14:44:11 Mother No current problems or disability Not available 03/11 14:44:11 Medical History Condition Response Depression Y Hyperlipidemia Y Hypertension Y Gynecological HistoryNo gynecological history recorded. Obstetrics History GPAL:G 0 P 0 0 0 0 Past Encounters Encounter ID Performer Location Encounter Start Date Encounter Closed Date Diagnosis/Indication Diagnosis SNOMED-CT Code Diagnosis ICD10 Code Diagnosis Note [id number] MD Sarah SIDDIQUIKetan [facility] [address] [place] [address] 03/11/2022 14:02:17 03/11/2022 17:12:09 Major depressive disorder 707548462 F32.5 Peripheral vascular disease 833469008 I73.9 Dementia w ith behavioral disturbance 0556233167 103 F02.81 Hypertensive disorder 38 291290 I10 [id number] MD Trace SIDDIQUI [facility] [address] [place] [id number] 04/22/2022 14:52:59 04/23/2022 17:48:38 Hypertensive disorder 40370396 I10 Supraventr icular tachycardia 7956171 I47.1 Platelet disorder 722142 05 D69.1 Memory impairment 868460 006 R41.3 Malaise and fatigue 2717 71584 R53.81 Dementia 59112764 F03.90 Health Concerns Section Related Observation LastModified by Organization Detai ls LastModified Time None Recorded Concern Status LastModified by Organization Details LastModified Time None Recorded Advance Directives Directive None Recorded Payers Insurance Date Sequence Insurance Name Policy Number Policy Palmer Covered Member ID Palmer Member ID Guarantor Name 03/10/2014 1 [place] MICAELA COBURNT (PPO) [id number] Carlos Edmondoughby [id number] Radha Amaya [place] 02/16/2022 1 [employer] (PPO) [id number] Radha Amaya Lanette [id number] Radha Amaya Lanette 06/07/2022 1 [employer] (MEDICARE REPLACEMENT/ADVA NTAGE - HMO) Radha Amaya Lanette [id number] Radha Amaya Lanette 02/16/2022 1 [employer] Radha Amaya Lanette [id number] Radha J Lanette Notes Date Note Type Note Provider Name and Address Organization Details Recorded Time 03/11/2022 text/html Patient is here to establish care for new patient. PRAKASH BACON MD [address] [place], [address], [facility] 03/11/2022 15:12:51 04/22/2022 text/html Patient is here today for follow up on neurologist referral and getting labs done. PRAKASH BACON MD [address] [place], [address], [facility] 04/22/2022 16:32:30 OBGyn Episode No OBEpisode recorded.
--- OUTSIDE RECORDS SUMMARY | 2025-01-02 17:38 | XMS_ITS | Clinical Summary ---
[facility] Organization [facility] Address [address] [place] [address] Care Team Providers Care Cloth Feeder Name Role Phone Felipe Singh Primary Care Provider [phone] Allergies Active Allergy Reactions Criticality Noted Date Comments Cefuroxime Axetil Angioedema High 10/09/2011 Lisinopril Angioedema High 10/12/2011 Medications omega-3 fatty acids-fish oil 300-1,000 mg CapsuleIndicatio ns:Acute idiopathic gout involving toe of right foot Take by mouth daily. 8 Active multivitamin (DAILY-CAITLYN) tablet Take 1 Tablet by mouth daily. 9 Active diclofenac sodium (VOLTAREN) 1 % gel Apply 2 Grams to affected area 4 times daily. Use on shoulder QID 100 Gram 2 Active FLUoxetine (PROzac) 20 mg capsule Take 1 Capsule (20 mg) by mouth daily. 30 Capsule 1 2 Active busPIRone (BUSPAR) 5 mg tablet Take 5 mg by mouth 2 times daily. Active donepeziL (ARICEPT) 5 mg tablet Take 10 mg by mouth daily at bedtime. Active atorvastatin (LIPITOR) 20 mg tablet Take 1 Tablet (20 mg) by mouth daily. 30 Tablet 1 3 Active thiamine mononitrate (VITAMIN B-1) 100 mg tablet Take 1 Tablet (100 mg) by mouth daily. 30 Tablet 1 3 Active Active Problems Problem Noted Date Diagnosed Date Speech disturbance 03/05/2023 Gait difficulty 03/05/2023 Acute metabolic encephalopathy 03/04/2023 Situational mixed anxiety and depressive disorde r 03/11/2020 Mixed hyperlipidemia 03/11/2020 Achalasia of esophagus 10/14/2018 Esophageal diverticulum 10/14/2018 Chronic blood loss anemia 10/13/2018 Benign hypertension 12/28/2016 Spondylolisthesis, grade 2 01/21/2016 Spinal stenosis of lumbar re gion with neurogenic claudication 01/21/2016 History of TIA (transient ischemic attack) and s troke 06/14/2015 GERD (gastroesophageal reflux disease) 4 Raynaud's disease 05/25/2011 Osteopenia 05/25/2011 Immunizations Immunization Administration Dates Next Due (ADACEL/BOOSTRIX)(10 YR UP) TDAP VACCINE, 0.5ML, IM 10/24/2012 (PFIZER JOANNA)(12 YR UP PRIMA RY SERIES) COVID-19 VACCINE - EMERGENCY USE AUTHORIZATION, MRNA, JOANNA(PF) 30 MCG/0.3 ML IM SUSP 10/29/2021 (PNEUMOVAX 23)(50 YRS UP) PN EUMOCOCCAL POLYSACCHARIDE (PPV23) 0.5 ML, IM 01/27/2017 (PREVNAR 13)(6 WKS UP) PNEUM OCOCCAL CONJUGATE (PCV13) 0.5 ML, IM 06/14/2015 (SPIKEVAX) (12 YRS UP PRIMAR Y SERIES) COVID-19 VACCINE - MRNA-1273(PF) 100 MCG/0.5 ML IM SUSP 09/25/2020,08/23/2020 Adacel Vaccine > 7 Yo IM 11/17/2012 INFLUENZA VACCINE HIGH DOSE QUADRIVALENT 65 YR UP PF IM 05/13/2021,04/18/2020,04/18/2020 Influenza Seasonal Unspecifi ed Formulation IM 05/11/2014,04/25/2012 Influenza Vaccine High Dose 65+ Yrs IM 7,06/14/2015 Zoster Vaccine Live SQ 09/02/2012 Family History Medical History Relation Name Comments Stroke Brother 1 her twin Hypertension Father Stroke Father Colon Cancer Maternal Aunt hilario Heart Failure Mother Other Mother No Known Problems Sister 1 No Known Problems Sister 2 No Known Problems Sister 3 Relation Name Status Comments Brother 1 her twin Alive Brother 2 (Age 59) Daughter 1 Alive Daughter 2 Alive Father (Age 79) stroke Maternal Aunt hilario Alive Mother 90, alzheimers, heart Sister 1 Alive Sister 2 Alive Sister 3 Alive Social History Tobacco Use Types Packs/Day Years Used Date Smoking Tobacco: Former Cigarettes Q uit: 07/26/1989 Smokeless Tobacco: Never Alcohol Use Standard Drinks/Week Comments Yes 0 (1 standard drink = 0.6 oz pur e alcohol) Feeling Safe Answer Date Recorded Are you in a relationship wi th someone who hurts you emotionally and/or physically? No 03/04/2023 Food Insecurity Answer Date Recorded Social/Environmental Concerns No concerns Transportation Needs Answer Date Record ed Social/Environmental Concerns No concerns Housing Stability Answer Date Recorded Social/Environmental Concerns No concerns Utility Needs Answer Date Recorded Social/Environmental Concerns No concerns Comments No Sex and Gender Information Value Date Recorded Sex Assigned at Not on file Legal Sex Female 3:32 PM POST CLOSING SPECIALIST Gender Identity Not on file Sexual Orientation Not on file Last Filed Vital Signs Vital Sign Reading Time Taken Comments Blood Pressure 102/64 03/11/2023 12:00 PM CDT Pulse 88 03/11/2023 12:00 PM CDT Temperature 36.4 C (97.6 F) 03/11/2023 12:00 PM CDT Respiratory Rate 18 03/11/2023 12:00 PM CDT Oxygen Saturation 99% 03/11/2023 12:00 PM CDT Inhaled Oxygen Concentration - - Weight 66.3 kg (146 lb 1.6 oz) 03/05/2023 7:33 A M CDT Height 160 cm (5' 3) 03/05/2023 7:33 AM CDT Body Mass Index 25.88 03/05/2023 7:33 AM CDT Plan of Treatment Health Maintenance Due Date Last Done Comments FIT-DNA Q 3 years 1994 FIT/FOBT Q 1 year 1994 Flex Sig/CT Colonography Q 5 years 1994 ZOSTER VACCINE (2 of 3) 10/28/2012 09/02/2012 DTAP/TDAP/TD VACCINES (3 - T d or Tdap) 11/17/2022 11/17/2012, 10/24/2012 COLORECTAL SCREENING 08/15/2023 08/15/2018, 08/15/2018, 12/26/2012, Additional history exists Colorectal Cancer Screening 08/15/2023 INFLUENZA VACCINE (#1) 2024 1, 04/18/2020, 04/18/2020, Additional history exists COVID-19 Vaccine (2023-2 5 season) 2024 10/29/2021, 09/25/2020, 08/23/2020 RSV VACCINE (60+ or ) (1 - 1-dose 75+ series) 2024 OSTEOPOROSIS SCREENING 12/26/2027 3, 12/25/2022, 02/07/2019, Additional history exists PNEUMOCOCCAL VACCINE 50+ YEARS Completed 01/27/2017 , 06/14/2015 Medical Devices Implanted Type Area Heating And Ventilating Drafter Device Identifier Shelf Expiration Date Model / Serial / Lot Allgrft Magnifuse Pl [id number] - [id number] Implanted:Q ty: 1 on 03/26/2016 by Harrison Power MD Biological N/A: Spine Lumbar [employer] [id number] 09/29/2017 [id number] / [id number] / Infuse Protein Kit [id number] - [id number] Implanted:Q ty: 1 on 03/26/2016 by Harrison Power MD Biological N/A: Spine Lumbar MED[employer]- SOFAMOR DANEK [id number] 10/24/2017 [id number] / / [id number] Mesh Phasix St 3in Rnd [id number] - [id number] Implanted:Q ty: 1 on 10/14/2018 by Usman Jesus MD Mesh N/A: Esophagus CR BARD- DAVOL INC 04/22/2020 [id number] / / [id number] Capsule Ph Testing Schwartz [id number] - [id number] Implanted:Q ty: 1 on 08/15/2018 by Reggie Dodge, Other N/A: Esophagus MEDTR[employer] COVIDIEN school bus aide. GIVEN 06/15/2019 [id number] / [id number] / [id number] Leoncio Sharona Vit Crv 4.5x35mm [id number] - [id number] Implanted:Q ty: 1 on 03/26/2016 by Harrison Power MD Leoncio N/A: Spine Lumbar DAHIANA- SPINE 03/26/2016 [id number] / / [id number] Leoncio Sharona Vit Crv 4.5x40mm [id number] - [id number] Implanted:Q ty: 1 on 03/26/2016 by Harrison Power MD Leoncio N/A: Spine Lumbar DAHIANA- SPINE 03/26/2016 [id number] / / [id number] Screw 4.5xia Pa 5.5x40mm [id number] - [id number] Implanted:Q ty: 4 on 03/26/2016 by Harrison Power MD Screw N/A: Spine Lumbar DAHIANA- SPINE 03/26/2016 [id number] / / Sealant Floseal W/ Adptr 10ml [id number] - [id number] Implanted:Q ty: 1 on 03/26/2016 by Harrison Power MD Sealant N/A: Spine Lumbar [employer]uitive- MangoPlate 07/25/2017 [id number] / / [id number] Sury Sharona 4.5mm [id number] - [id number] Implanted:Q ty: 4 on 03/26/2016 by Harrison Power MD Spine N/A: Spine Lumbar DAHIANA- SPINE 03/26/2016 [id number] / / [id number] Screw Left: Arm Description:Present on admis rolanda per pt report Dahiana Tritanium Pl Cage Implanted:Q ty: 1 on 03/26/2016 by Harrison Power MD N/A: Spine Lumbar [id number] 10/22/2020 [id number] / / [id number] Procedures Procedure Name Priority Date/Time Associated Diagnosis Comments XR DEXA BONE DENSITY AXIAL 1 OR MORE SITES Routine 02/07/2019 2:09 PM CDT Postmenopausal COLONOSCOPY REPORT Routine 08/15/2018 1: 15 PM POST CLOSING SPECIALIST from Last 3 Months or Most Recently Relevant to Health Maintenance Results * XR DEXA BONE DENSITY AXIAL 1 OR MORE SITES (02/07/2019 2:09 PM CDT) Anatomical Region Laterality Modality Other Impressions 02/07/2019 5:05 PM CDT Osteopenia of the proximal left femur and left femoral neck. The [place] National Osteoporosis Foundation recommends offering treatment choices to anyone with low bone density (osteopenia) whose FRAX score for hip fractures is 3% or greater or whose risk for other bone fractures is greater than 20%. [id number]/[facility] Narrative 02/07/2019 5:05 PM CDT PROCEDURE: XR DEXA BONE DENSITY AXIAL 1 OR MORE SITES DATE: 02/07/2019 2:09 PM REASON FOR STUDY: Postmenopausal female. COMPARISON: No prior studies. FINDINGS: Lumbar spine: Bone mineral density: 1.174 g/sq cm T score: 0 Z score: 1.7 Proximal left femur: Bone mineral density: 0.865 g/sq cm T score: -1.1 Z score: 0.3 Left femoral neck: Bone mineral density: 0.851 g/sq cm T score: -1.3 Z score: 0.3 FRAX questionnaire calculations: Risk of major osteoporotic fracture: 16.7% Risk of hip fracture: 2.6% Procedure Note Kalia Pierre MD - 12/13/2020 PROCEDURE: XR DEXA BONE DENSITY AXIAL 1 OR MORE SITES DATE: 02/07/2019 2:09 PM REASON FOR STUDY: Postmenopausal female. COMPARISON: No prior studies. FINDINGS: Lumbar spine: Bone mineral density: 1.174 g/sq cm T score: 0 Z score: 1.7 Proximal left femur: Bone mineral density: 0.865 g/sq cm T score: -1.1 Z score: 0.3 Left femoral neck: Bone mineral density: 0.851 g/sq cm T score: -1.3 Z score: 0.3 FRAX questionnaire calculations: Risk of major osteoporotic fracture: 16.7% Risk of hip fracture: 2.6% IMPRESSION Osteopenia of the proximal left femur and left femoral neck. The [place] National Osteoporosis Foundation recommends offering treatment choices to anyone with low bone density (osteopenia) whose FRAX score for hip fractures is 3% or greater or whose risk for other bone fractures is greater than 20%. [id number][facility] Neida Tuttle APRN DIAGNOSTIC IMAGING ORD ERABLES Final Result * COLONOSCOPY REPORT (08/15/2018 1:15 PM POST CLOSING SPECIALIST) 08/15/2018 1:15 PM POST CLOSING SPECIALIST us Reggie Dodge DO GI PROCEDURE ORDERABLE S Final Result [facility] from Last 3 Months or Most Recently Relevant to Health Maintenance Insurance [id number] [facility] Advance Directives For more information, please contact: [phone] Documents on File Type Date Recorded Patient Contemporary Or Modern Dancer Expl anation Advance Directive POA 05/13/2021 10:21 AM Advance Directive POA Advance Directive Living Will 05/13/2021 10:20 AM Advance Directive Living Will * Full Code (Latest Code Status on File) Date Activated Date Inactivated Comments 03/04/2023 10:22 PM 03/11/2023 5:45 PM Care Teams Cloth Feeder Relationship Specialty Start Date End Date Felipe Singh PA [address] [place] [id number] PCP - General Rubber Press Operator 03/05/23
--- OUTSIDE RECORDS SUMMARY | 2025-01-02 17:38 | XMS_ITS | Clinical Summary ---
Author Organization [facility] at the Medical Office Building Address [address] [place] [address] Care Team Providers Care Branch Operation Evaluation Manager Name Role Phone Felipe Singh Primary Care Provider [phone] Allergies Active Allergy Reactions Criticality Noted Date [...] 06/22/2022 Assessment & Plan (06/30/2022 2:50 PM SENIOR PREMIUM AUDITOR): HEALTHCARE MAINTENANCE updated Mixed hyperlipidemia 03/11/2020 Situational mixed anxiety and depressive disorde r 03/11/2020 Esophageal diverticulum 10/14/2018 Achalasia of esophagus 10/14/2018 Chronic blood loss anemia 10/13/2018 Spondylolisthesis, grade 2 01/21/2016 Spinal stenosis of lumbar re gion with neurogenic claudication 01/21/2016 Osteopenia 05/25/2011 Raynaud's disease 05/25/2011 Hypertension Assessment & Plan (07/15/2022 3:26 PM SENIOR PREMIUM AUDITOR): Images from the original note were not included. This is a stable chronic condition. Monitor blood pressure, call if out of parameters as we discussed. Low sodium and caffeine diet. baby asa as discussed if applicable. Diet, exercise and weight reduction. Labs as ordered. F/U routine Assessment & Plan (06/30/2022 2:50 PM SENIOR PREMIUM AUDITOR): Images from the original note were not included. This is a stable chronic condition. Monitor blood pressure, call if out of parameters as we discussed. Low sodium and caffeine diet. baby asa as discussed if applicable. Diet, exercise and weight reduction. Labs as ordered. F/U routine Alzheimer's dementia Assessment & Plan (07/15/2022 3:36 PM SENIOR PREMIUM AUDITOR): Mild, increasing aricept, will follow, she is seen Psychiatry and Neurology down the road Assessment & Plan (06/30/2022 2:52 PM SENIOR PREMIUM AUDITOR): Does not appers to be doing well per family, will do aditional work up Mild episode of recurrent major depressive disor franck Assessment & Plan (07/15/2022 3:26 PM SENIOR PREMIUM AUDITOR): Well controlled, CPM Assessment & Plan (06/30/2022 2:49 PM SENIOR PREMIUM AUDITOR): Well controlled with no SI/HI, CPM, f/u [...] on file Legal Sex Female 9:06 AM SENIOR PREMIUM AUDITOR Gender Identity Female 06/23/2022 6:41 PM SENIOR PREMIUM AUDITOR Sexual Orientation Straight 06/23/2022 6: 41 PM SENIOR PREMIUM AUDITOR Obstetrics History Para Term AB IAB SAB Ectopic Multiple Livin g Live Births 2 Date Outcome GA Total Labor Labor/2nd/3rd Weight Sex Type Anes PTL Rafaela A1 A5 Name Clin Last Filed Vital Signs Vital Sign Reading Time Taken Comments Blood Pressure 129/74 06/09/2023 2:40 PM SENIOR PREMIUM AUDITOR Pulse 79 06/09/2023 2:40 PM SENIOR PREMIUM AUDITOR Temperature 36.4 C (97.5 F) 08/18/2022 10:55 AM SENIOR PREMIUM AUDITOR Respiratory Rate 18 08/18/2022 10:55 AM SENIOR PREMIUM AUDITOR Oxygen Saturation 99% 08/18/2022 10:55 AM SENIOR PREMIUM AUDITOR Inhaled Oxygen Concentration - - Weight 61.7 kg (136 lb) 06/09/2023 2:40 PM SENIOR PREMIUM AUDITOR Height 162.6 cm (5' 4) 06/09/2023 2:40 PM SENIOR PREMIUM AUDITOR Body Mass Index 23.34 06/09/2023 2:40 PM SENIOR PREMIUM AUDITOR Plan of Treatment Health Maintenance Due Date Last Done Comments Colon Cancer Screening-Colonoscopy 1950 Hepatitis B Screening 12/03/1967 Zoster Vaccine (2 of 3) 10/28/2012 09/02/2012 DTaP/Tdap/Td Vaccine (3 - Td or Tdap) 11/17/2022 11/17/2012, 10/24/2012 Depression Screening 06/23/2023 06/23/2022, 06/23/20 22 Fall Risk Assessment 06/23/2023 06/23/2022 Well Visit 65+ 06/23/2023 06/23/2022 Covid-19 Vaccine (3 - 2023-2 5 season) 2024 09/25/2020, 08/23/2020 Osteoporosis Screening-Bone Density Scan 12/25/2024 12/25/2022 Influenza Vaccine (Season Ended) 2025 06/28/2017, 06/14/2015, 05/11/2014, Additional history exists Pneumococcal vaccine 65+ Completed 01/27/2017, 05/27 Hepatitis C Screening Completed 06/23/2022 Breast Cancer Screening-Mammogram Discontinued 023 Procedures Procedure Name Priority Date/Time Associated Diagnosis Comments SCREENING MAMMOGRAM BILATERAL W ADAMA Schedule Routine, Read Routine (OP Routine) 12/25/2022 4:06 PM CDT Encounter for screening mammogram for malignant neoplasm of breast DEXA AXIAL SKELETON BONE DENSITY 1 OR MORE SITES Schedule Routine, Read Routine (OP Routine) 12/25/2022 3:59 PM CDT Menopause HEPATITIS C ANTIBODY Routine 06/23/2022 2:33 PM SENIOR PREMIUM AUDITOR Need for hepatitis C screening test from [...] F with given history of screening. Postmenopausal Cloth Calender/Model: Hologic Horizon A (S/N [id number]) CLINICAL INFORMATION: Current height: 61.5 inches Maximum [...] Amrit Godinez M.D. MF: JIGNA Report ID: [id number] Reading Location: [place] [address] Procedure Note Amrit Godinez MD - 12/26/2022 EXAM DESCRIPTION: DEXA AXIAL SKELETON BONE DENSITY 1 OR MORE SITES REASON FOR STUDY: 72 y/o year old F with given history of screening. Postmenopausal Cloth Calender/Model: Hologic Horizon A (S/N [id number]) CLINICAL INFORMATION: Current height: 61.5 inches Maximum [...] Amrit Godinez M.D. MF: JIGNA Report ID: [id number] Reading Location: [id number] us Felipe JEFF[facility] IMG DXA PROCEDURES Final Result * Hepatitis C antibody (06/23/2022 2:33 PM SENIOR PREMIUM AUDITOR) Hep C Ab Nonreactive Nonreactive CARLOS ALBERTO [...] revised on 2019. Blood 06/23/2022 2:33 PM SENIOR PREMIUM AUDITOR 06/23/2022 5:01 PM SENIOR PREMIUM AUDITOR Felipe [facility]FF[facility] LAB MICROBIOLOGY - GENERAL [facility] Final Result CARLOS ALBERTO [address] [facility] Department [place] [address] from Last 3 Months or Most Recently Relevant to Health Maintenance Insurance HU[employer]NA MEDICARE HMO HUMANA MEDICARE HMO HUMANA MEDICARE HMO Care Teams Branch Operation Evaluation Manager Relationship Specialty Start Date End Date Felipe Singh PA PCP - General Family Medicine 06/23/22
== END 2025-01-02 22:01 ==
PROVIDERS: Emergency Provider Registered Nurse
DX: S06.0X0A Concussion without loss of consciousness, initial encounter (principal); F03.90 Unspecified dementia, unspecified severity, without behavioral disturbance, psychotic disturbance, mood disturbance, and anxiety; E78.5 Hyperlipidemia, unspecified; F41.9 Anxiety disorder, unspecified; M50.31 Other cervical disc degeneration, high cervical region; W19.XXXA Unspecified fall, initial encounter
CPT/HCPCS: 70450; 70486; 72125; 99284

== ENCOUNTER 2025-02-08 09:15 | Emergency (ER) | payer MEDICARE, SELFPAY ==
--- NOTE | ~2025-02-08 | CT_ITS ---
CT of the Abdomen and Pelvis: Indication: Abdominal pain Technique: 2.5 mm axial scans were obtained through the abdomen and pelvis following intravenous adm inistration of 100 cc of Omnipaque 350. Dose reduction technique was used on this scan by utilizing a utomated exposure control and iterative reconstruction technique. The dose-length product (DLP) was 4 20.60 mGy-cm. Findings: Scans through the lung bases are clear. Moderate hiatal hernia present. The liver, spleen, pancreas, gallbladder, adrenals and kidneys are within normal limits. There are at herosclerotic calcifications of the aorta. No lymphadenopathy. No bowel obstruction or bowel wall thickening. Probable fecal impaction/constipation. Images through the pelvis were performed. Urinary bladder unremarkable. No pelvic mass seen. No ascit es. Impression: Fecal impaction/constipation. Moderate hiatal hernia. Reviewed, dictated and finalized at [facility]. Impression: Fecal impaction/constipation. Moderate hiatal hernia.
[2025-02-08 09:14] VITALS: BP 138/75; PULSE 72; RESP 19; TEMP 36.4; O2SAT 99
--- OUTSIDE RECORDS SUMMARY | 2025-02-08 09:25 | XMS_ITS | Referral Summary ---
Author Organization [facility] at the Medical Office Building Address [address] [place] [phone] Care Team Providers Care Patient Centered Care Specialist Name Role Phone Felipe Singh Primary Care Provider [phone] Allergies Active Allergy Reactions Criticality Noted Date [...] 06/22/2022 Assessment & Plan (06/30/2022 2:50 PM GROUP ART SUPERVISOR): HEALTHCARE MAINTENANCE updated Mixed hyperlipidemia 03/11/2020 Situational mixed anxiety and depressive disorde r 03/11/2020 Esophageal diverticulum 10/14/2018 Achalasia of esophagus 10/14/2018 Chronic blood loss anemia 10/13/2018 Spondylolisthesis, grade 2 01/21/2016 Spinal stenosis of lumbar re gion with neurogenic claudication 01/21/2016 Osteopenia 05/25/2011 Raynaud's disease 05/25/2011 Hypertension Assessment & Plan (07/15/2022 3:26 PM GROUP ART SUPERVISOR): Images from the original note were not included. This is a stable chronic condition. Monitor blood pressure, call if out of parameters as we discussed. Low sodium and caffeine diet. baby asa as discussed if applicable. Diet, exercise and weight reduction. Labs as ordered. F/U routine Assessment & Plan (06/30/2022 2:50 PM GROUP ART SUPERVISOR): Images from the original note were not included. This is a stable chronic condition. Monitor blood pressure, call if out of parameters as we discussed. Low sodium and caffeine diet. baby asa as discussed if applicable. Diet, exercise and weight reduction. Labs as ordered. F/U routine Alzheimer's dementia Assessment & Plan (07/15/2022 3:36 PM GROUP ART SUPERVISOR): Mild, increasing aricept, will follow, she is seen Psychiatry and Neurology down the road Assessment & Plan (06/30/2022 2:52 PM GROUP ART SUPERVISOR): Does not appers to be doing well per family, will do aditional work up Mild episode of recurrent major depressive disor franck Assessment & Plan (07/15/2022 3:26 PM GROUP ART SUPERVISOR): Well controlled, CPM Assessment & Plan (06/30/2022 2:49 PM GROUP ART SUPERVISOR): Well controlled with no SI/HI, CPM, f/u [...] on file Legal Sex Female 9:06 AM GROUP ART SUPERVISOR Gender Identity Female 06/23/2022 6:41 PM GROUP ART SUPERVISOR Sexual Orientation Straight 06/23/2022 6: 41 PM GROUP ART SUPERVISOR Last Filed Vital Signs Vital Sign Reading Time Taken Comments Blood Pressure 129/74 06/09/2023 2:40 PM GROUP ART SUPERVISOR Pulse 79 06/09/2023 2:40 PM GROUP ART SUPERVISOR Temperature 36.4 C (97.5 F) 08/18/2022 10:55 AM GROUP ART SUPERVISOR Respiratory Rate 18 08/18/2022 10:55 AM GROUP ART SUPERVISOR Oxygen Saturation 99% 08/18/2022 10:55 AM GROUP ART SUPERVISOR Inhaled Oxygen Concentration - - Weight 61.7 kg (136 lb) 06/09/2023 2:40 PM GROUP ART SUPERVISOR Height 162.6 cm (5' 4) 06/09/2023 2:40 PM GROUP ART SUPERVISOR Body Mass Index 23.34 06/09/2023 2:40 PM GROUP ART SUPERVISOR Plan of Treatment Not on file Procedures [...] HEPATITIS C ANTIBODY Routine 06/23/2022 2:33 PM GROUP ART SUPERVISOR Need for hepatitis C screening test from [...] F with given history of screening. Postmenopausal Cell Biology Scientist/Model: HealthyTweet A (S/N [id number]) CLINICAL INFORMATION: Current height: 61.5 inches Maximum [...] Amrit Godinez M.D. MF: JIGNA Report ID: [id number] Reading Location: [id number] Procedure Note Amrit Godinez MD - 12/26/2022 EXAM DESCRIPTION: DEXA AXIAL SKELETON BONE DENSITY 1 OR MORE SITES REASON FOR STUDY: 72 y/o year old F with given history of screening. Postmenopausal Cell Biology Scientist/Model: HealthyTweet A (S/N [id number]) CLINICAL INFORMATION: Current height: 61.5 inches Maximum [...] Amrit Godinez M.D. MF: JIGNA Report ID: [id number] Reading Location: [place] [address] Felipe JEFFERS IMG DXA PROCEDURES Final Result * Hepatitis C antibody (06/23/2022 2:33 PM GROUP ART SUPERVISOR) Hep C Ab Nonreactive Nonreactive CARLOS ALBERTO [...] was last revised on 2019. Blood 06/23/2022 2:3 3 PM GROUP ART SUPERVISOR 06/23/2022 5:01 PM GROUP ART SUPERVISOR Felipe [facility] LAB [facility]BIOLOGY [facility] Final Result CARLOS ALBERTO [address] [facility] Department [place] [address] from Last 3 Months or Most Recently Relevant to Health Maintenance Insurance HUMANA MEDICARE HMO HUMANA MEDICARE HMO HUMANA MEDICARE HMO Care Teams Patient Centered Care Specialist Relationship Specialty Start Date End Date Felipe Singh PA PCP - General Family Medicine 06/23/22
--- OUTSIDE RECORDS SUMMARY | 2025-02-08 09:25 | XMS_ITS | Patient Health Record ---
Author Organization [facility] Address [address] [place] [address] Care Team Providers Care Aircraft Accessories Mechanic Name Role Phone Sha Cardenas Unavailable [phone] Reason For Referral No Information Medications Medication SIG (Take, Route, Frequency, Duration) Notes Start Date End Date Status Vitamin B-1 100 MG Oral 09/01/2023 Active Atorvastatin Calcium 20 MG Oral 09/01/2023 Active Sertraline HCl 100 MG Oral 09/01/2023 Active Multi-Vitamin Oral 09/01/2023 Activ e Memantine HCl 10 MG Oral 09/01/2023 Active busPIRone HCl 5 MG Oral 09/01/2023 Active QUEtiapine Fumarate 25 MG Oral 09/01/2023 Active Fish Oil 300-1,000 mg Oral *Pick strength-form from [email or web address] for eRX* 09/01/2023 Active Donepezil HCl 10 MG Oral 09/01/2023 Active Diclofenac Sodium 1% Transdermal 09/01/2023 Active Plan Of Treatment No Information Insurance Providers Payer Name Payer Address Payer Phone Subscriber Number Group Number Insured Name Patient Relationship to Insured Coverage Start Date Coverage End Date [employer] [address] [address] [place] [address] [phone] [id number] NOEMI ZAMUDIO Self - patient is the insured Medical (General) History Surgical History Surgery Date(Month/Year) Hysterectomy (08602) 07/26/1975 Other 08/16/1974 Any surgical history 06/30/1971
--- OUTSIDE RECORDS SUMMARY | 2025-02-08 09:25 | XMS_ITS | Clinical Summary ---
Author Organization [facility] at the Medical Office Building Address [address] [place] [phone] Care Team Providers Care Optical Design Engineer Name Role Phone Felipe Singh Primary Care Provider [phone] Allergies Active Allergy Reactions Criticality Noted Date [...] 06/22/2022 Assessment & Plan (06/30/2022 2:50 PM DIE SETTER): HEALTHCARE MAINTENANCE updated Mixed hyperlipidemia 03/11/2020 Situational mixed anxiety and depressive disorde r 03/11/2020 Esophageal diverticulum 10/14/2018 Achalasia of esophagus 10/14/2018 Chronic blood loss anemia 10/13/2018 Spondylolisthesis, grade 2 01/21/2016 Spinal stenosis of lumbar re gion with neurogenic claudication 01/21/2016 Osteopenia 05/25/2011 Raynaud's disease 05/25/2011 Hypertension Assessment & Plan (07/15/2022 3:26 PM DIE SETTER): Images from the original note were not included. This is a stable chronic condition. Monitor blood pressure, call if out of parameters as we discussed. Low sodium and caffeine diet. baby asa as discussed if applicable. Diet, exercise and weight reduction. Labs as ordered. F/U routine Assessment & Plan (06/30/2022 2:50 PM DIE SETTER): Images from the original note were not included. This is a stable chronic condition. Monitor blood pressure, call if out of parameters as we discussed. Low sodium and caffeine diet. baby asa as discussed if applicable. Diet, exercise and weight reduction. Labs as ordered. F/U routine Alzheimer's dementia Assessment & Plan (07/15/2022 3:36 PM DIE SETTER): Mild, increasing aricept, will follow, she is seen Psychiatry and Neurology down the road Assessment & Plan (06/30/2022 2:52 PM DIE SETTER): Does not appers to be doing well per family, will do aditional work up Mild episode of recurrent major depressive disor franck Assessment & Plan (07/15/2022 3:26 PM DIE SETTER): Well controlled, CPM Assessment & Plan (06/30/2022 2:49 PM DIE SETTER): Well controlled with no SI/HI, CPM, f/u [...] on file Legal Sex Female 9:06 AM DIE SETTER Gender Identity Female 06/23/2022 6:41 PM DIE SETTER Sexual Orientation Straight 06/23/2022 6: 41 PM DIE SETTER Obstetrics History Para Term AB IAB SAB Ectopic Multiple Livin g Live Births 2 Date Outcome GA Total Labor Labor/2nd/3rd Weight Sex Type Anes PTL Rafaela A1 A5 Name Clin Last Filed Vital Signs Vital Sign Reading Time Taken Comments Blood Pressure 129/74 06/09/2023 2:40 PM DIE SETTER Pulse 79 06/09/2023 2:40 PM DIE SETTER Temperature 36.4 C (97.5 F) 08/18/2022 10:55 AM DIE SETTER Respiratory Rate 18 08/18/2022 10:55 AM DIE SETTER Oxygen Saturation 99% 08/18/2022 10:55 AM DIE SETTER Inhaled Oxygen Concentration - - Weight 61.7 kg (136 lb) 06/09/2023 2:40 PM DIE SETTER Height 162.6 cm (5' 4) 06/09/2023 2:40 PM DIE SETTER Body Mass Index 23.34 06/09/2023 2:40 PM DIE SETTER Plan of Treatment Health Maintenance Due Date [...] HEPATITIS C ANTIBODY Routine 06/23/2022 2:33 PM DIE SETTER Need for hepatitis C screening test from [...] F with given history of screening. Postmenopausal Crisis Intervention Counselor/Model: Hologic Horizon A (S/N [id number]) CLINICAL INFORMATION: Current height: 61.5 inches Maximum [...] Amrit Godinez M.D. MF: JIGNA Report ID: [id number] Reading Location: [place] [address] Procedure Note Amrit Godinez MD - 12/26/2022 EXAM DESCRIPTION: DEXA AXIAL SKELETON BONE DENSITY 1 OR MORE SITES REASON FOR STUDY: 72 y/o year old F with given history of screening. Postmenopausal Crisis Intervention Counselor/Model: Hologic Horizon A (S/N [id number]) CLINICAL INFORMATION: Current height: 61.5 inches Maximum [...] Amrit Godinez M.D. MF: JIGNA Report ID: [id number] Reading Location: [id number] [place] Felipe JEFFERS IMG DXA PROCEDURES Final Result * Hepatitis C antibody (06/23/2022 2:33 PM DIE SETTER) Hep C Ab Nonreactive Nonreactive CARLOS ALBERTO [...] revised on 2019. Blood 06/23/2022 2:33 PM DIE SETTER 06/23/2022 5:01 PM DIE SETTER Felipe JEFFERS LAB MICROBIOLOGY - GENERAL [facility] Final Result CARLOS ALBERTO [address] [facility] Department [place] [address] from Last 3 Months or Most Recently Relevant to Health Maintenance Insurance HUMANA MEDICARE HMO HUMANA MEDICARE HMO HUMANA MEDICARE HMO Care Teams Optical Design Engineer Relationship Specialty Start Date End Date Felipe Singh PA PCP - General Family Medicine 06/23/22
--- OUTSIDE RECORDS SUMMARY | 2025-02-08 09:25 | XMS_ITS | Clinical Summary ---
[facility] Address [address] [place] [address] Care Team Providers Care Supervisor Cereal Name Role Phone Felipe Singh Primary Care Provider [phone] Allergies Active Allergy Reactions Criticality Noted Date [...] drink = 0.6 oz pur e alcohol) Comments No Sex and Gender Information Value Date Recorded Sex Assigned at Not on file Legal Sex Female 3:32 PM REAL ESTATE ASSISTANT Gender Identity Not on file Sexual Orientation [...] Additional history exists Colorectal Cancer Screening 08/15/2023 COVID-19 Vaccine (2023-2 5 season) 2024 10/29/2021, 09/25/2020, 08/23/2020 RSV VACCINE (60+ or ) (1 - 1-dose 75+ series) 2024 INFLUENZA VACCINE (#1) 2025 1, 04/18/2020, 04/18/2020, Additional history exists OSTEOPOROSIS SCREENING 12/26/2027 3, 12/25/2022, 02/07/2019, Additional history exists PNEUMOCOCCAL VACCINE 50+ YEARS Completed 01/27/2017 , 06/14/2015 Medical Devices Implanted Type Area Registration Representative Device Identifier Shelf Expiration Date Model / Serial / Lot Allgrft Magnifuse Pl [id number] - [id number] Implanted:Q ty: 1 on 03/26/2016 by Harrison Power MD Biological N/A: Spine Lumbar [employer] [id number] 09/29/2017 [id number] / [id number] / Infuse Protein Kit Sm [id number] - [id number] Implanted:Q ty: 1 on 03/26/2016 by Harrison Power MD Biological N/A: Spine Lumbar [employer]- SOFAMOR DANEK [id number] 10/24/2017 [id number] / / [id number] Mesh Phasix St 3in Rnd [id number] - [id number] Implanted:Q ty: 1 on 10/14/2018 by Usman Jesus MD Mesh N/A: Esophagus CR BARD- DAVOL INC 04/22/2020 [id number] / / [id number] Capsule Ph Testing Schwartz [id number] - [id number] Implanted:Q ty: 1 on 08/15/2018 by Reggie Dodge DO Other N/A: Esophagus [employer] COVIDIEN beef specialist. GIVEN 06/15/2019 [id number] / [id number] / [id number] Leoncio Sharona Vit Crv 4.5x35mm [id number] - [id number] Implanted:Q ty: 1 on 03/26/2016 by Harrison Power MD Leoncio N/A: Spine Lumbar DAHIANA- SPINE 03/26/2016 [id number] / / [id number] Leoncio Sharona Vit Crv 4.5x40mm [id number] - [id number] Implanted:Q ty: 1 on 03/26/2016 by Harrison Power MD Leoncio N/A: Spine Lumbar DAHIANA- SPINE 03/26/2016 [id number] / / [id number] Screw 4.5xia Pa 5.5x40mm [id number] - [id number] Implanted:Q ty: 4 on 03/26/2016 by Harrison Power MD Screw N/A: Spine Lumbar DAHIANA- SPINE 03/26/2016 [id number] / / Sealant Floseal W/ Adptr 10ml [id number] - [id number] Implanted:Q ty: 1 on 03/26/2016 by Harrison Power MD Sealant N/A: Spine Lumbar SEBASTIAN[employer] 07/25/2017 [id number] / / [id number] Sury Sharona 4.5mm [id number] - [id number] Implanted:Q ty: 4 on 03/26/2016 by Harrison Power MD Spine N/A: Spine Lumbar DAHIANA- SPINE 03/26/2016 [id number] / / [id number] Screw Left: Arm Description:Present on admis rolanda per pt report Dahiana Tritanium Pl Cage Implanted:Q ty: 1 on 03/26/2016 by Harrison Power MD N/A: Spine Lumbar [id number] 10/22/2020 [id number] / / [id number] Procedures Procedure Name Priority Date/Time Associated Diagnosis Comments XR DEXA BONE DENSITY AXIAL 1 OR MORE SITES Routine 02/07/2019 2:09 PM CDT Postmenopausal COLONOSCOPY REPORT Routine 08/15/2018 1: 15 PM REAL ESTATE ASSISTANT from Last 3 Months or Most Recently [...] other bone fractures is greater than 20%. [id number]/[facility] Narrative 02/07/2019 5:05 PM CDT PROCEDURE: [...] other bone fractures is greater than 20%. [id number]/[facility] Neida Tuttle APRN DIAGNOSTIC IMAGING ORD ERABLES Final Result * COLONOSCOPY REPORT (08/15/2018 1:15 PM REAL ESTATE ASSISTANT) 08/15/2018 1:15 PM REAL ESTATE ASSISTANT Reggie Dodge DO GI PROCEDURE ORDERABLE S Final Result Performing Organization Address City/State/[facility] Co de Phone Number [facility] from Last 3 Months or Most Recently Relevant to Health Maintenance Insurance Space Apart [place] [facility] Advance Directives For more information, please contact: [phone] Documents on File Type Date Recorded Patient Quality Improvement Coordinator (Rn) Expl anation Advance Directive POA 05/13/2021 10:21 AM Advance Directive POA Advance Directive Living Will 05/13/2021 10:20 AM Advance Directive Living Will * Full Code (Latest Code Status on File) Date Activated Date Inactivated Comments 03/04/2023 10:22 PM 03/11/2023 5:45 PM Care Teams Supervisor Cereal Relationship Specialty Start Date End Date Felipe Singh PA [address] [place] [phone] PCP - General Water Taxi Operator 03/05/23
--- OUTSIDE RECORDS SUMMARY | 2025-02-08 09:25 | XMS_ITS | Data Portability ---
Author Organization [place] - [facility] - Raissa jeffries, [facility] Address [address] [place] [address] Assessment Encounter Date Assessment Date Assessment LastModified [...] recorded. Lab lipid panel, serum 2021 022 [facility], [address] [place] [address] [place], [address], 3 04:28:48 CBC 2021 022 [facility], [address] [place] [address] [place], [address], 3 04:28:48 CMP, serum or plasma 2021 022 [facility], [address] [place] [address] [place], [address], 3 04:28:48 HbA1c (hemoglobin A1c), blood 2021 022 [facility], [address] [place], [place] [address], [address], 3 04:28:48 TSH, serum or plasma 2021 [facility] [place] [facility], [address] [place] [address], [address], 3 04:28:49 T4, free, serum 2021 [facility] [place] [facility], [address] [place] [address] [place], [address], 3 04:28:49 T3, total, serum 2021 [facility] [place] [facility], [address] [place] [address], [address], 3 04:28:49 vitamin D, 25-hydroxy, total, serum 2021 [facility], [address] [place] [address], [address], 3 04:28:49 vitamin B12, serum 2021 [facility], [address] [place] [address], [address], 3 04:28:50 Referral neuropsycho logist referral 2021 [facility] - Dr. Sarkis Perez MD, [address], [place], [address], 3 04:28:50 neurologist referral 2021 [facility] - Dr. Sarkis Perez MD, [address], [place], [address], 15:24:13 Procedures None recorded. Surgeries None recorded. Imaging None recorded. Medication Orders donepezil 5 mg tablet 2021 [facility], [address] [place], [address], 16:32:03 losartan 50 mg-hydrochl orothiazide 12.5 mg tablet 2021 [facility], [address], [place], [address], 15:12:16 Adult Low Dose Aspirin 81 mg tablet,vanessa yed release 2021 [facility], [address], [place], [address], 15:12:16 Patient TargetsNo targets recorded. Patient Instructions Encounter Date Encounter Id Patient Instructions Last Modified By Organization Details Last Modified Time 04/22/2022 [id number] home monitoring* agoddu Not availabl e 05/05/2022 15:07:30 Reason for Referral Neurologist Referral for Dem entia with behavioral disturbance Referring Physician: Prakash Bacon [facility] Medicine, Encounter Date: 03/11/2022 Neuropsychologist Referral f or Dementia Referring Physician: Prakash Bacon [facility] Medicine, Encounter Date: 04/22/2022 Problems Name Problem SNOMED Code Status Onset Date Resolution Date Notes Provider Name and Address Organization Details Recorded Time Essential hypertension 27596826 Active 2021 DEWAYNE Juarez, [place] - [facility] - [place] 14:43:29 Hyperlipidemia 95175702 Active 2021 DEWAYNE Juarez null, [place] - [facility] [place] 14:43:43 Major depressive disorder 667664512 Active 2021 DEWAYNE Juarez, [facility] 2 14:43:50 Problem Notes None recorded. Medical Equipment None Reported. Allergies Allergen ID Allergen Name Allergen Category Reaction Reaction Severity Criticality Documentation Date Start Date Code Code System Note Provider Name and Address Organization Details Recorded Time 080130 cefuroxim e Not available Not available Not available Not available 03/11/2022 2194 RxNorm DEWAYNE Juarez [facility] 2 14:42:11 609981 lisinopri l medicatio n Not available Not available Not available 03/11/2022 50688 RxNorm DEWAYNE Juarez [facility] 2 14:43:05 Medications Name Sig [...] in Arterial blood by Pulse oximetry Systolic And Diastolic Provider Name and Address Organization Details Last Updated DateTime 2 160.02 cm 26.8 kg/m2 48076.2 5 g 97.2 [degF] 82 /min 97 % 97 % 122/80 mm[Hg] DEWAYNE Juarez [facility] 2 14:39:46 Date Recorded Body height Body mass index (BMI) Body weight Body temperature Heart rate Oxygen saturation Oxygen saturation in Arterial blood by Pulse oximetry Systolic And Diastolic Provider Name and Address Organization Details Last Updated DateTime 2 160.02 cm 26.6 kg/m2 31949.5 6 g 97.8 [degF] 78 /min 99 % 99 % 140/80 mm[Hg] DEWAYNE Juarez [facility] 2 16:16:34 Social History Question Answer Notes LastModified by [employer] ion Details LastModified Time Tobacco Smoking Status Never Smoker DEWAYNE Juarez null, [facility] 03/11/2022 14:45:06 Are You Blind Or Do [...] Functional Status Question Answer Note LastModified by [employer] ion Details LastModified Time Do you use any [...] SNOMED-CT Code Diagnosis ICD10 Code Diagnosis Note [id number] MD Sarah SIDDIQUIKetan [facility] [address] [place] [address] 03/11/2022 14:02:17 03/11/2022 17:12:09 Major depressive disorder 320039490 F32.5 Peripheral vascular disease 767224121 I73.9 Dementia w ith behavioral disturbance 8303374913 103 F02.81 Hypertensive disorder 38 525944 I10 [id number] MD Trace SIDDIQUI [facility] [address] [place] [address] 04/22/2022 14:52:59 04/23/2022 17:48:38 Hypertensive disorder 36358655 I10 Supraventr icular tachycardia 3135506 I47.1 Platelet disorder 506987 05 D69.1 Memory impairment 314163 006 R41.3 Malaise and fatigue 2717 09651 R53.81 Dementia 78814803 F03.90 Health Concerns Section Related Observation LastModified by Organization Detai ls LastModified Time None Recorded Concern Status LastModified by Organization Details LastModified Time None Recorded Advance Directives Directive None Recorded Payers Insurance Date Sequence Insurance Name Policy Number Policy Palmer Covered Member ID Palmer Member ID Guarantor Name 03/10/2014 1 [place] MICAELA MENSAH (PPO) [id number] Carlos Edmondoughby [id number] Radha Amaya [place] 02/16/2022 1 [employer] (PPO) [id number] Radha Edmondoughby [id number] Radha Edmondoughby 06/07/2022 1 [employer] (MEDICARE REPLACEMENT/ADVA NTAGE - HMO) Radha Edmondoughby [id number] Radha Edmondoughby 02/16/2022 1 [employer] Radha Amaya [place] [id number] Radha Amaya [place] Notes Date Note Type Note Provider Name and Address Organization Details Recorded Time 03/11/2022 text/html Patient is here to establish care for new patient. PRAKASH BACON MD [address] [place], [address], [facility] 03/11/2022 15:12:51 04/22/2022 text/html Patient is here today for follow up on neurologist referral and getting labs done. PRAKASH BACON MD [address] [place], [address], [facility] 04/22/2022 16:32:30 OBGyn Episode No OBEpisode recorded.
[2025-02-08 09:40] LABS: Hematocrit 42.2 % (37.0-47.0); Hemoglobin 13.6 g/dL (12.0-15.0); Immature Granulocyte Percent A 0.4 % (0-0.5); Lymphocytes Absolute Auto 1.53 K/mm3 (0.9-3.2); Mean Corpuscular HGB Conc 32.2 g/dl (32-36); Mean Corpuscular Hemoglobin 31.4 pg (26-34); Mean Corpuscular Volume 97.5 fl (80-100); Nucleated Red Blood Cells Absolute Auto 0.000 K/mm3 (0.0-0.012); Nucleated Red Blood Cells Perc 0.0 % (0.0-0.2); Platelet Count Result 203 k/mm3 (150-375); Red Blood Count 4.33 M/mm3 (4.2-5.4); White Blood Count 9.8 K/mm3 (4.5-10.0)
--- NOTE | 2025-02-08 09:47 | ED_ITS ---
HPI - Nausea/Vomiting/Diarrhea General Chief complaint: Nausea/Vomiting/Diarrhea Stated complaint: nausea, no BM x 2 days Time Seen by Provider: 02/08/25 09:15 Source: patient Mode of arrival: EMS Limitations: dementia History of Present Illness HPI Narrative: Patient is a 74 y/o female, with PMH of dementia -A&OX1-2 at baseline, who presents to the ED via EMS with c/o constipation. Patient is a resident at [facility]. Per facility staff, patient has not had a BM in the past 2 days, which they report is not normal for her. She began c/o nausea this morning at breakfast. Sent here for further evaluation. Patient unable to provide any information. Related Data Allergies Allergy/AdvReac Type Severity Reaction Status Date / Time Cephalosporins Allergy Unknown Unknown Verified 02/08/25 09:20 lisinopril Allergy Unknown Unknown Verified 02/08/25 09:20 Review of Systems 2 Review of Systems: All systems reviewed & are unremarkable except as noted in HPI. ROS unobtainable: Yes unobtainable due to mental status PMFSH Past Medical History Medical History Hyperlipidemia Anxiety Dementia Exam 2 Narrative: GENERAL: Elderly but well appearing, well-nourished, non-toxic, in no acute distress. HEAD: Normocephalic, atraumatic. RESPIRATORY: Airway patent, respirations nonlabored. Clear to auscultation bilaterally, no rales, rhonchi, wheezing. CARDIOVASCULAR: Regular rate and rhythm without murmurs, rubs, or gallops. ABDOMINAL: Soft, no appreciable tenderness, nondistended. Normoactive BS. MUSCULOSKELETAL: Moves all extremities. No gross deformities. SKIN: Warm, dry, normal color. NEURO: Alert, oriented X 1-2, attempts to answer some questions. Follows commands. Speech clear. No ataxic movements. PSYCHIATRIC: Appropriate mood and affect. Normal interaction. Course Vital Signs Vital signs: Vital Signs Temperature 97.6 F 02/08/25 09:14 Pulse Rate 72 02/08/25 09:14 Respiratory Rate 19 02/08/25 09:14 Blood Pressure 138/75 02/08/25 09:14 Pulse Oximetry 99 02/08/25 09:14 Oxygen Delivery Room Air 02/08/25 09:14 Temperature 97.6 F 02/08/25 09:14 Pulse Rate 88 02/08/25 13:30 Respiratory Rate 16 02/08/25 13:30 Blood Pressure 120/71 02/08/25 13:30 Pulse Oximetry 100 02/08/25 13:30 Oxygen Delivery Room Air 02/08/25 09:14 MDM - Nausea/Vomiting/Diarrhea MDM Narrative Medical decision making narrative: Patient presented to ED with constipation, nausea, from local assisted living facility. Patient with history of dementia, unable to provide any information. A&OX1-2 at baseline. Vital signs are stable upon arrival. Patient is in no acute distress. I am unable to elicit any focal tenderness throughout abdominal exam. Laboratory studies fairly unremarkable. No leukocytosis or anemia. Stable electrolytes. Stable kidney function. Normal LFTs and lipase. Viral swabs are negative. UA unable to be obtained via straight cath. Per daughter, patient has abnormal urethral anatomy and typically unable to obtain via catheterization. Daughter reports they frequently monitor for UTIs at facility and patient just recently finished a course of abx for a UTI and was tested to be cured of UTI. Will cancel UA for now. CT scan of abdomen/pelvis was obtained and showing fecal impaction and constipation. No obstruction. No other concerning findings. Attempted CANDY in the ED. Unable to reach stool ball. The stool that I did obtain was soft and brown in color. No rectal bleeding or melena. Patient safe for D/C back to facility at this time with constipation management. Will prescribe MiraLax and Dulcolax for staff to administer. Advised to encourage patient to stay well hydrated. Given return precautions. Family in agreement with plan. Medical Records Attestation: I reviewed the patient's medical records. Lab Data Attestation: I reviewed the patient's lab results. 02/08/25 09:30 02/08/25 09:30 Labs: Lab Results 02/08/25 02/08/25 Range/Units 09:30 10:03 WBC 9.8 (4.5-10.0) K/mm3 RBC 4.33 (4.2-5.4) M/mm3 Hgb 13.6 (12.0-15.0) g/dL Hct 42.2 (37.0-47.0) % MCV 97.5 (80-100) fl MCH 31.4 (26-34) pg MCHC 32.2 (32-36) g/dl RDW 13.6 (11.5-14.5) % Plt Count 203 (150-375) k/mm3 MPV 10.6 H (7.4-10.4) fl Immature Gran % (Auto) 0.4 (0-0.5) % Neut % (Auto) 78.2 H (45.5-73.1) % Lymph % (Auto) 15.6 L (18.3-44.2) % Randall % (Auto) 5.2 (2.6-8.5) % Eos % (Auto) 0.3 (0-4.4) % Baso % (Auto) 0.3 (0.2-1.2) % Lymph # (Auto) 1.53 (0.9-3.2) K/mm3 Randall # (Auto) 0.5 (0.1-0.6) K/mm3 Eos # (Auto) 0.0 (0-0.3) K/mm3 Baso # (Auto) 0.0 (0.0-0.1) K/mm3 Abs Immat Gran (auto) 0.04 H (0.00-0.031) K/mm3 Absolute Neuts (auto) 7.7 H (1.3-6.7) K/mm3 Absolute Nucleated RBC 0.000 (0.0-0.012) K/mm3 Nucleated RBC % 0.0 (0.0-0.2) % Sodium 138 (137-145) mmol/L Potassium 3.9 (3.4-5.0) mmol/L Chloride 103 (98-107) mmol/L Carbon Dioxide 29 (22-30) mmol/L Anion Gap 6 (4-12) mmol/L BUN 20 H (7-17) mg/dL Creatinine 0.79 (0.7-1.0) mg/dL Estim Creat Clear Calc Not Reportable Estimated GFR > 60 (59 - ) Glucose 116 H (65-110) mg/dL Calcium 9.5 (8.4-10.2) mg/dL Total Bilirubin 0.4 (0.2-1.3) mg/dL AST 32 (14-36) U/L ALT 19 (6-35) U/L Alkaline Phosphatase 75 (38-126) U/L Total Protein 7.0 (6.3-8.2) g/dL Albumin 4.1 (3.5-5.1) g/dL Lipase 111 (23-300) U/L Influenza A (RT-PCR) Negative (Negative) Influenza B (RT-PCR) Negative (Negative) RSV (RT-PCR) Negative (Negative) SARS-CoV-2 RNA (RT-PCR) Negative (Negative) Imaging Data Attestation: I personally reviewed and interpreted this imaging study as follows: Radiologist's impression: ITS Impressions Abdomen/Pelvis CT 02/08/25 11:14 Impression: Fecal impaction/constipation. Moderate hiatal hernia. Discharge Plan Discharge Clinical Impression: Constipation Qualifiers: Constipation type: unspecified constipation type Qualified Code(s): K59.00 - Constipation, unspecified Patient Disposition: Home Condition: Stable Instructions: Antibiotic Form, Constipation (ED) Additional Instructions: Patient's imaging showed evidence of constipation. Recommend MiraLax and Dulcolax up to twice daily as needed for constipation. Encourage patient to drink plenty of fluids. Utilize zofran as needed for nausea. Follow-up with primary care doctor for further evaluation. Return to the ED for new or worsening concerns. Patient Language: Sri Lankan Prescriptions: New ondansetron 4 mg tablet,disintegrating 4 mg PO Q8H PRN (Reason: nausea and vomiting) Qty: 15 0RF polyethylene glycol 3350 [Miralax] 17 gram/dose powder 17 g PO BID PRN (Reason: constipation) Qty: 119 0RF bisacodyl [Dulcolax (bisacodyl)] 5 mg tablet,delayed release (DR/EC) 5 mg PO ONCE PRN (Reason: constipation) Qty: 20 0RF Follow-up/Referrals: PHYSICIAN,DIAL BUFFER [Primary Care Provider] - Time of Disposition: 12:15
[2025-02-08 10:07] LABS: Alanine Aminotransferase 19 U/L (6-35); Albumin Level 4.1 g/dL (3.5-5.1); Alkaline Phosphatase 75 U/L (38-126); Anion Gap 6 mmol/L (4-12); Aspartate Amino Transferase 32 U/L (14-36); Bilirubin,Total 0.4 mg/dL (0.2-1.3); Blood Urea Nitrogen 20 mg/dL (7-17); Calcium 9.5 mg/dL (8.4-10.2); Carbon Dioxide 29 mmol/L (22-30); Chloride 103 mmol/L (98-107); Estimated Glomerular Filt Rate > 60; Glucose 116 mg/dL (65-110); Lipase 111 U/L (23-300); Potassium 3.9 mmol/L (3.4-5.0); Sodium 138 mmol/L (137-145); Total Protein 7.0 g/dL (6.3-8.2)
--- NOTE | 2025-02-08 10:20 | PC.NURSE ---
attempted straight cath for urine sample by [facility] RNs without success. Provider notified.
[2025-02-08] MEDS: SODIUM CHLORIDE 0.9% IV 1,000 ML 999 ML IV CONT (10:23)
[2025-02-08 10:26] VITALS: BP 136/78; PULSE 66; RESP 22; O2SAT 99
[2025-02-08 11:00] LABS: Influenza A QL RT-PCR Negative (Negative); Influenza B QL RT-PCR Negative (Negative); RSV RNA, RT-PCR Negative (Negative); SARS-CoV-2 RNA PCR Negative (Negative)
[2025-02-08 13:30] VITALS: BP 120/71; PULSE 88; RESP 16; O2SAT 100
--- NOTE | 2025-02-08 15:05 | PC.NURSE ---
Pt assisted to RR by RN via wheelchair and pt's daughter. Pt assisted back into bed and repositioned for comfort. Waiting ambulance transport back to facility. Pt and daughter aware. Call light in reach.
== END 2025-02-08 16:06 ==
PROVIDERS: Emergency Provider Physician Assistant
DX: K59.00 Constipation, unspecified (principal); F03.90 Unspecified dementia, unspecified severity, without behavioral disturbance, psychotic disturbance, mood disturbance, and anxiety; E78.5 Hyperlipidemia, unspecified; K44.9 Diaphragmatic hernia without obstruction or gangrene
CPT/HCPCS: 36415; 74177; 80053; 83690; 85025; 87637; 96360; 99284; J7030; Q9967